=== PATIENT | female | born 1935 | race Caucasian/White ===

== ENCOUNTER 2017-06-10 12:53 | Inpatient (IN) | payer MEDICARE, MEDICAID ==
[2017-06-10 13:29] LABS: % BASOPHILS 0.9 % (0.0-2.0); % EOSINOPHILS 1.7 % (0.0-5.0); % LYMPHOCYTES 24.9 % (20.0-50.0); % MONOCYTES 5.8 % (2.0-10.0); % NEUTROPHILS 66.7 % (40.0-80.0); HEMOGLOBIN 12.6 gm/dL (12-16); MEAN CELL VOLUME 91.3 fl (81-100); MEAN CORPUSCULAR HGB CONC 33.9 pg (28.0-36.0); MEAN PLATELET VOLUME 7.2 fl; NEUTROPHILE ABSOLUTE 4.2 Th/cmm (1.8-8.0); PLATELET COUNT 238 Th/cmm (150-400); RED BLOOD COUNT 4.05 Mil/cmm (3.80-5.20); RED CELL DISTRIBUTION WIDTH 14.4 % (11.5-20.0); WHITE BLOOD COUNT 6.4 Th/cmm (4.8-10.8)
[2017-06-10 13:43] LABS: ALB/GLOB RATIO 1.2 (1.0-1.8); ALKALINE PHOSPHATASE 73 U/L (34-104); ANION GAP 7.9 (7.0-16.0); BILIRUBIN,TOTAL 0.5 mg/dL (0.3-1.0); BUN - UREA NITROGEN 19 mg/dL (7-25); CALCIUM SERUM 8.5 mg/dL (8.6-10.3); CARBON DIOXIDE 27.2 mEq/L (21.0-31.0); CHLORIDE 105 mEq/L (98-107); GLUCOSE 155 mg/dL (70-105); POTASSIUM SERUM 4.1 mEq/L (3.5-5.1); SGOT 13 U/L (13-39); SGPT/ALT 8 U/L (7-52); SODIUM SERUM 136 mEq/L (136-145)
[2017-06-10 13:59] LABS: URINE BILIRUBIN NEGATIVE (NEGATIVE); URINE BLOOD TRACE (NEGATIVE); URINE GLUCOSE (UA) NEGATIVE (NEGATIVE); URINE KETONE NEGATIVE (NEGATIVE); URINE PROTEIN NEGATIVE (NEGATIVE)
[2017-06-10 14:08] LABS: URINE BACTERIA MANY /hpf (NONE SEEN); URINE COLOR YELLOW; URINE EPITHELIAL CELLS FEW /lpf (FEW); URINE RBC 0-2 /hpf (0-5); URINE WBC 0-2 /hpf (0-5)
--- NOTE | 2017-06-10 14:14 | ED Physician Chart ---
ED Chief Complaint/HPI - Patient Information Date Seen:: 06/10/17 Time Seen:: 13:54 Chief Complaint:: Weight loss History of Present Illness:: 82 yo female presented to the ER with her daughter. The patient who has a history of stroke 10 years ago, was noticed to have short term memory loss for about 10 months. She was also noticed weight loss for 4 months. About 2 months ago, the patient was admitted to hospital due to UTI and falls. She was diagnosed with Alzheimer's disease and was later discharged to a SNF in [place]. The patient was subsequently brought to [place], [place] by her daughter. The patient has developed frequent UTI due to bladder prolapse. Recently, the patient was noticed to have a large right abdominal protrusion and odorous urine. At night time, the patient was also noticed to more confused. Allergies:: Allergies Allergy/AdvReac Type Severity Reaction Status Date / Time No Known Allergies Allergy Verified 06/10/17 13:06 Vitals:: Vital Signs - 8 hr 06/10/17 13:00 Temp 97.7 F HR 66 RR 15 BP 144/76 O2 Sat % 98 ED Review of Systems - Review of Systems General/Constitutional: Weight loss, Weakness Skin: Bruising Head: No headache Eyes: No loss of vision ENT: No nasal drainage Neck: No neck pain Cardio Vascular: No chest pain Pulmonary: No SOB GI: No nausea, No vomiting Musculoskeletal: No bone or joint pain Neurological: Confusion ED Past Medical History - Past Medical History Past Medical History: HTN, CVA/TIA, Other (cystocele) Social History: Smoker (former smoker), No Alcohol, No Drug Use Surgical History: other (cystocele surgery) Psychiatricy History: Dementia Family Medical History - Family Member Daughter Ethnicity: Hx Family Cancer: No Hx Family Congestive Heart Failure: No Hx Family Hypertension: No Hx Family Stroke: Yes (father) Hx Family Diabetes: No Hx Family Dementia: Yes (older sister) Hx Family AIDS: No Hx Family HIV: No Hx Family COPD: No Hx Family Psychiatric Problems: No Hx Family Tuberculosis: No ED Physical Exam - Physical Examination General/Constitutional: Awake, Alert Eyes: PERRL, EOMI Other Skin comments:: Left perioral ecchymosis ENMT: External ears, nose nl Neck: Nontender Respiratory: Clear to Auscultation, No Wheeze/Rhonchi/Rales Cardio Vascular: RRR, No murmur, gallop, rubs, NL S1 S2 Other GI comments:: A large right lower quadrant abdominal hernia Other comments:: bladder prolapse can be retracted. Other Misc comments:: Oriented to self only, cannot recognize her daughter, follow command, left facial weakness, RUE 5/5, LUE 4+/5, RLE 5/5, LLE 4+/5. ED Labs/Radiology/EKG Results - Lab Results Results: Laboratory Tests 06/10/17 13:20 WBC 6.4 RBC 4.05 Hgb 12.6 Hct 37.0 L MCV 91.3 MCH 31.0 MCHC Differential 33.9 RDW 14.4 Plt Count 238 MPV 7.2 Neutrophils % 66.7 Lymphocytes % 24.9 Monocytes % 5.8 Eosinophils % 1.7 Basophils % 0.9 ED Assessment - Assessment General Assessment: 82 yo female has Alzheimer's disease, large right abdominal hernia and cystocele with possible UTI. Critical Care Time: 45 min Excludes all billable procedures: Yes This condition life threatening/high prob of deterioration: No Assessment/Comments:: Admit the patient for further evaluation of worsening dementia, abdominal hernia , cystocele and possible UTI. ED Septic Shock - . Is Septic Shock (SBP<90, OR Lactate>4 mmol\L) present?: No - <6hrs of presentation: Vital Signs: Vital Signs - 8 hr 06/10/17 13:00 Temp 97.7 F HR 66 RR 15 BP 144/76 O2 Sat % 98 ED Reassessment (Disposition) - Reassessment Reassessment Condition:: Improved - Patient Disposition Discharge/Transfer:: Acute Care w/in this hosp Admitted to:: Med/Surg Admitting Psych Physician:: Elizabeth Jacob ED Discharge Plan - Patient Disposition Admit/Discharge/Transfer: Acute Care w/in this hosp Condition at Disposition: Stable
[2017-06-10] MEDS ORDERED: Pneumococcal Vaccine 0.5 mL Vial IM ONE (17:36)
[2017-06-10 19:37] VITALS: BP 134/71
--- NOTE | 2017-06-10 22:36 | History and Physical ---
History of Present Illness - HPI Chief Complaint: weight loss HPI: 82 year old female who was brought to the ER by daughter for complaints of weight loss. Patient was recently discharged from a halfway in [place], [place]. Patient has been having frequent falls and uti. Vital Signs: Last Vital Signs Temp 98.0 F 06/10/17 21:14 Pulse 72 06/10/17 21:14 Resp 18 06/10/17 21:14 BP 120/68 06/10/17 21:14 Pulse Ox 98 06/10/17 21:14 Past Medical History Cardiovascular: Report: HTN Pulmonary: Report: No Pertinent Hx LADLE REPAIRER: Report: CVA GI: Report: No Pertinent Hx Psych: Report: Addictions, Other (alzheimers) Rheumatologic: Report: No pertinent Hx Infectious Disease: Report: No Pertinent Hx Renal/: Report: Other (cystocele) Endocrine: Report: No Pertinent Hx Dermatology: Report: No Pertinent Hx - Past Surgical History Past Surgical History: Other (cystocele) Family Medical History - Family Member Daughter History Unknown: Yes (noncontributory) Ethnicity: Hx Family Cancer: No Hx Family Congestive Heart Failure: No Hx Family Hypertension: No Hx Family Stroke: Yes (father) Hx Family Diabetes: No Hx Family Dementia: Yes (older sister) Hx Family AIDS: No Hx Family HIV: No Hx Family COPD: No Hx Family Psychiatric Problems: No Hx Family Tuberculosis: No Social History Smoke: No Alcohol: None Drugs: None Lives: With Family - Medications Home Medications: Home Medication Medication Instructions Recorded Type Amlodipine Besylate 5 mg PO DAILY 06/10/17 History Aspirin 81 mg PO DAILY 06/10/17 History Clopidogrel Bisulfate [Plavix] 75 mg PO DAILY 06/10/17 History Ferrous Sulfate [Iron] 325 mg PO BID 06/10/17 History Haloperidol [Haldol*] 1 mg PO TID 06/10/17 History QUEtiapine Fumarate [SEROquel] 25 mg PO HS 06/10/17 History Ramipril [Ramipril*] 10 mg PO DAILY 06/10/17 History - Allergies Allergies/Adverse Reactions: Allergies Allergy/AdvReac Type Severity Reaction Status Date / Time No Known Allergies Allergy Verified 06/10/17 13:06 Review of Systems - Review of Systems Constitutional: Report: Weakness Eyes: Report: No Significant ENT: Report: No Significant Respiratory: Report: No Significant Cardiovascular: Report: No Significant Gastrointestinal: Report: No Significant Genitourinary: Report: No Significant Neurological: Report: Numbness, Confusion Physical Exam - Physical Exam HEENT: Report: Ears Nose Throat within normal limits Neck: Report: Within normal limits Cardiovascular Systems: Report: +s1/s2 noted, Regular, Rate and Rhythm Respiratory: Report: Breath Sounds are within normal limits Abdomen: Report: Non-tender to palpation Back: Report: Inspection of back is within normal limits. Extremities: Report: Non-tender to palpation. Skin: Report: Color of skin is within normal limits Neuro/Psych: Report: Weakness or sensory loss noted. - Assessment Assessment: acute uti dementia hx frequent falls alzheimer's hx cva - Plan Plan: neuro consult dietary consult monitor electrolytes fall precautions continue current order
--- NOTE | 2017-06-11 04:01 | Consultation ---
DATE OF CONSULTATION: 06/10/2017 HISTORY AND PHYSICAL: This is an 82-year-old female patient, who was brought in by the daughter to the Emergency Room. The patient has a history of stroke 10 years ago and the patient has recent weight loss. The patient has been admitted with repeat urinary tract infection and falls. The patient at the present time has dementia with recent memory loss. The patient has uterine prolapse. The patient is confused and poor historian at this time. PAST MEDICAL HISTORY: Urinary tract infection, dementia, protein calorie malnutrition, urinary bladder prolapse, hypertension, CVA with late effect, iron deficiency anemia, major depression. FAMILY HISTORY: Unremarkable. SOCIAL HISTORY: No history of smoking, alcohol abuse. ALLERGIES: None. PHYSICAL EXAMINATION: VITAL SIGNS: Blood pressure 130/80, pulse 70, respirations 20. HEAD: Normocephalic. No lumps or bumps. EYES: Pupils equal, reactive to light. Fundi show AV nicking, sclerae white, conjunctivae pink. NECK: Carotid 2+. Normal upstroke. JVD flat. Thyroid not palpable. Lymph nodes not palpable. CHEST: Shows increased AP diameter. No kyphosis, scoliosis. LUNGS: Bilateral bronchovesicular breath sounds. HEART: PMI fifth intercostal space with lateral to midclavicular line. S1, S2. No S3, S4. Systolic murmur, grade 2/6, lower left sternal border without radiation. ABDOMEN: Soft. Liver and spleen not palpable. No organomegaly. Bowel sounds are active. NEUROLOGIC: Unremarkable except dementia. EXTREMITIES: Peripheral pulses 2+. No pedal edema. CLINICAL IMPRESSION: Urinary tract infection, dementia, protein calorie malnutrition, bladder prolapse, hypertension, CVA with late effect, iron-deficiency anemia, major depression, and frequent falls. PLAN: The patient to be admitted. We will get carotid duplex study as well as echocardiogram and repeat EKG. [facility]# [id number]
[2017-06-11 05:26] LABS: % BASOPHILS 0.7 % (0.0-2.0); % EOSINOPHILS 3.4 % (0.0-5.0); % LYMPHOCYTES 32.9 % (20.0-50.0); % MONOCYTES 6.5 % (2.0-10.0); % NEUTROPHILS 56.5 % (40.0-80.0); HEMATOCRIT 37.8 % (41.0-60); HEMOGLOBIN 12.7 gm/dL (12-16); MEAN CORPUSCULAR HEMOGLOBIN 30.6 pg (27.0-31.0); MEAN CORPUSCULAR HGB CONC 33.6 pg (28.0-36.0); NEUTROPHILE ABSOLUTE 3.2 Th/cmm (1.8-8.0); PLATELET COUNT 219 Th/cmm (150-400); RED BLOOD COUNT 4.15 Mil/cmm (3.80-5.20); RED CELL DISTRIBUTION WIDTH 14.5 % (11.5-20.0); WHITE BLOOD COUNT 5.7 Th/cmm (4.8-10.8)
[2017-06-11 05:44] LABS: ANION GAP 8.9 (7.0-16.0); BUN - UREA NITROGEN 19 mg/dL (7-25); BUN/CREATININE RATIO 21.1; CALCIUM SERUM 8.9 mg/dL (8.6-10.3); CARBON DIOXIDE 27.5 mEq/L (21.0-31.0); CHLORIDE 107 mEq/L (98-107); CREATININE - SERUM 0.9 mg/dL (0.6-1.2); GLUCOSE 92 mg/dL (70-105); POTASSIUM SERUM 4.4 mEq/L (3.5-5.1); SODIUM SERUM 139 mEq/L (136-145)
[2017-06-11] MEDS: Ferrous Sulfate 325 MG TAB PO SCH ×2 (08:57→17:59)
[2017-06-11] MEDS: Aspirin 81mg Chewable Tab PO SCH (08:57)
--- NOTE | 2017-06-11 16:49 | Consultation ---
Consult Note - Consult Note Service Date: 06/11/17 Referring Physician: Elizabeth Jacob Consult Note: PHYSICIAN Consultation Note: Date of Admission: 06/10/17 Purpose of Consultation: Chief Complaint: Patient GARRET MALIK was admitted to location Medical/Surgical Unit I with UTI,DEMENTIA. History of Present Illness: 82 yo female with PMH od dementia, depression, HTN, ventral hernia presented to the ER weight loss for 4 months. About 2 months ago, the patient was admitted to hospital due to UTI and falls. She was diagnosed with Alzheimer's disease and was later discharged to a SNF in [place]. The patient was subsequently brought to [place], [place] by her daughter. The patient has developed frequent UTI due to bladder prolapse. Recently, the patient was noticed to have a large right abdominal protrusion and odorous urine. At night time, the patient was also noticed to more confused. Past Medical History: Diagnoses IRON DEFICIENCY ANEMIA, UNSPECIFIED (06/10/17) UNSPECIFIED PROTEIN-CALORIE MALNUTRITION (06/10/17) DEMENTIA IN OTH DISEASES CLASSD ELSWHR W/O BEHAVRL DISTURB (06/10/17) MAJOR DEPRESSIVE DISORDER, RECURRENT, UNSPECIFIED (06/10/17) ALZHEIMER'S DISEASE, UNSPECIFIED (06/10/17) ESSENTIAL (PRIMARY) HYPERTENSION (06/10/17) UNSPECIFIED SEQUELAE OF CEREBRAL INFARCTION (06/10/17) UNSPECIFIED ABDOMINAL HERNIA WITHOUT OBSTRUCTION OR GANGRENE (06/10/17) URINARY TRACT INFECTION, SITE NOT SPECIFIED (06/10/17) CYSTOCELE, UNSPECIFIED (06/10/17) HISTORY OF FALLING (06/10/17) Allergies Allergy/AdvReac Type Severity Reaction Status Date / Time No Known Allergies Allergy Verified 06/10/17 13:06 Vital Signs Temp 98.9 F 06/11/17 12:00 Pulse 76 06/11/17 12:00 Resp 19 06/11/17 12:00 BP 138/89 06/11/17 12:00 Pulse Ox 98 06/11/17 12:00 Intake & Output 06/10/17 06/11/17 06/11/17 18:59 06:59 18:59 Intake Total 300 Balance 300 Weight (lbs) 58.967 kg 58.967 kg Intake: Oral 300 Other: # Voids 2 # Bowel Movements 0 Laboratory Results - last 24 hr 06/11/17 06/11/17 06/11/17 04:35 04:35 04:35 WBC 5.7 RBC 4.15 Hgb 12.7 Hct 37.8 L MCV 91.0 MCH 30.6 MCHC Differential 33.6 RDW 14.5 Plt Count 219 MPV 8.0 Neutrophils % 56.5 Lymphocytes % 32.9 Monocytes % 6.5 Eosinophils % 3.4 Basophils % 0.7 Sodium 139 Potassium 4.4 Chloride 107 Carbon Dioxide 27.5 Anion Gap 8.9 BUN 19 Creatinine 0.9 Est GFR ( Amer) TNP Est GFR (Non-Af Amer) TNP BUN/Creatinine Ratio 21.1 Glucose 92 Calcium 8.9 TSH 2.73 Home Medication Medication Instructions Recorded Type Amlodipine Besylate 5 mg PO DAILY 06/10/17 History Aspirin 81 mg PO DAILY 06/10/17 History Clopidogrel Bisulfate [Plavix] 75 mg PO DAILY 06/10/17 History Ferrous Sulfate [Iron] 325 mg PO BID 06/10/17 History Haloperidol [Haldol*] 1 mg PO TID 06/10/17 History QUEtiapine Fumarate [SEROquel] 25 mg PO HS 06/10/17 History Ramipril [Ramipril*] 10 mg PO DAILY 06/10/17 History Current Medications Generic Name Dose Route Start Last Admin Trade Name Gianna PRN Reason Stop Dose Admin Amlodipine Besylate 5 mg 06/11/17 09:00 06/11/17 08:57 Norvasc PO 08/10/17 08:59 5 mg DAILY KASSY Administration Aspirin 81 mg 06/11/17 09:00 06/11/17 08:57 Aspirin Chewable PO 08/10/17 08:59 81 mg DAILY KASSY Administration Clopidogrel Bisulfate 75 mg 06/11/17 09:00 06/11/17 08:57 Plavix PO 08/10/17 08:59 75 mg DAILY KASSY Administration Ferrous Sulfate 325 mg 06/11/17 09:00 06/11/17 08:57 Iron PO 08/10/17 08:59 325 mg BID KASSY Administration Haloperidol 1 mg 06/10/17 21:00 06/11/17 14:17 Haldol PO 08/09/17 20:59 Not Given TID [facility] Protocol Sodium Chloride 1,000 mls @ 50 mls/hr 06/10/17 17:57 Nacl 0.9% IV 08/09/17 17:56 .Q20H KASSY Lorazepam 1 mg 06/11/17 10:54 06/11/17 10:59 Ativan IVP 08/10/17 10:53 1 mg Q6HR PRN Administration Agitation Protocol Quetiapine Fumarate 25 mg 06/10/17 21:00 06/10/17 21:57 Seroquel PO 08/09/17 20:59 25 mg HS KASSY Administration Protocol Ramipril 10 mg 06/11/17 09:00 06/11/17 10:00 Altace PO 08/10/17 08:59 Not Given DAILY KASSY Temazepam 15 mg 06/10/17 22:26 06/10/17 22:42 Restoril PO 08/09/17 22:25 15 mg HS PRN Administration Insomnia Protocol Review of Systems: A 12 point ROS was reviewed with the pertinent positive and negatives noted in the HPI. Social History Smoking Status Former smoker Drug Use No Alcohol Use No Family Medical History Family Medical History Start: 06/10/17 17: 14 Freq: ONCE Status: Active Document 06/10/17 17:14 [employer] (Rec: 06/10/17 17:19 [employer]OSES[employer] Star TechnologyJAELYN MARCUS-WOW- [id number]) Family Medical History Daughter History Unknown Yes Physical Exam: General: comfortable, cachectic. not in distress. HEENT: head: mprmocephalic,atraumatic/ Oral cavity moist, pink tongue, eyes pallor present. Neck: trachea in mid line. no use of accessory neck muscles. Cardio: S1 and S2 WNL. Respiratory: vesicular breath sounds. Abdominal: soft NT ND bs present. Genital/Urinary: deferred Extremities: ncce Neurological: alert awake. Assessment: 1. UTI. 2. Dementia. 3. HTN. Plan: Give cipro po for 7 days. further recommendations as per culture report. Signed, Timothy Healy M.D. [id number]
--- NOTE | 2017-06-11 18:50 | Progress Notes ---
DATE: 06/11/2017 SUBJECTIVE: The patient was seen interimly in the bed. The patient is awake, alert, oriented x 2-3 with episodes of confusion. Denies any pain or discomfort. Otherwise, the patient appears to be comfortable in no acute distress. OBJECTIVE: VITAL SIGNS: Temperature 98, heart rate of 66, blood pressure 132/70, respiration of 18, 95% on room air. HEENT: Head is atraumatic and normocephalic. Eyes: Bilateral conjunctivae are clear. Bilateral pupils are equally round and reactive. NECK: Supple. No JVD. CARDIOVASCULAR: S1 and S2, without murmur. PULMONARY: Clear to auscultation. GASTROINTESTINAL: Soft and nontender without guarding. Positive bowel sounds. MUSCULOSKELETAL: No clubbing, no cyanosis noted. ASSESSMENT: 1. Dementia. 2. Hypertension. 3. Iron deficiency anemia. 4. History of cerebrovascular accident. 5. History of frequent falls. 6. Insomnia. PLAN: We will keep the patient inpatient in Medical/Surgical Unit. We will monitor the patient's condition and behavior. Treatment plans were discussed with the patient's nurse. Treatment plans were discussed with Dr. Jacob. JOB# [id number]
[2017-06-12] MEDS: Sodium Chloride 0.9% 1,000 ML IV SCH ×2 (06:34→22:51)
--- NOTE | 2017-06-12 08:16 | Diagnostic Imaging Report ---
Exam: Ultrasound examination of the extracranial carotid circulation. HISTORY: Stenosis. Findings. Real-time ultrasound examination extracranial carotid circulation was performed multiple planes utilizing color Doppler technique. The study demonstrates atherosclerotic plaque consistent with calcified and soft plaque formation along the course of common carotid arteries extending in the origin internal and external carotid arteries bilaterally. Subintimal thickening is noted in carotid bulbs bilaterally. There is evidence of atherosclerotic plaque formation at the origin of the internal carotid arteries bilaterally with the mild stenosis. Right internal carotid artery ratio 0.9 Left internal carotid artery ratio 0.7. IMPRESSION: Mild stenosis of the internal carotid arteries at the origin with soft and calcified plaque formation and subintimal thickening.
--- NOTE | 2017-06-12 10:22 | General Progress Note ---
Subjective - Review of Systems Events since last encounter: patient awake alert some confusion in no pain Objective - Results Result Diagrams: 06/11/17 04:35 06/11/17 04:35 Recent Labs: Laboratory Last Values WBC 5.7 Th/cmm (4.8-10.8) 06/11/17 04:35 RBC 4.15 Mil/cmm (3.80-5.20) 06/11/17 04:35 Hgb 12.7 gm/dL (12-16) 06/11/17 04:35 Hct 37.8 % (41.0-60) L 06/11/17 04:35 MCV 91.0 fl (81-100) 06/11/17 04:35 MCH 30.6 pg (27.0-31.0) 06/11/17 04:35 MCHC Differential 33.6 pg (28.0-36.0) 06/11/17 04:35 RDW 14.5 % (11.5-20.0) 06/11/17 04:35 Plt Count 219 Th/cmm (150-400) 06/11/17 04:35 MPV 8.0 fl 06/11/17 04:35 Neutrophils % 56.5 % (40.0-80.0) 06/11/17 04:35 Lymphocytes % 32.9 % (20.0-50.0) 06/11/17 04:35 Monocytes % 6.5 % (2.0-10.0) 06/11/17 04:35 Eosinophils % 3.4 % (0.0-5.0) 06/11/17 04:35 Basophils % 0.7 % (0.0-2.0) 06/11/17 04:35 Sodium 139 mEq/L (136-145) 06/11/17 04:35 Potassium 4.4 mEq/L (3.5-5.1) 06/11/17 04:35 Chloride 107 mEq/L (98-107) 06/11/17 04:35 Carbon Dioxide 27.5 mEq/L (21.0-31.0) 06/11/17 04:35 Anion Gap 8.9 (7.0-16.0) 06/11/17 04:35 BUN 19 mg/dL (7-25) 06/11/17 04:35 Creatinine 0.9 mg/dL (0.6-1.2) 06/11/17 04:35 Est GFR ( Amer) TNP 06/11/17 04:35 Est GFR (Non-Af Amer) TNP 06/11/17 04:35 BUN/Creatinine Ratio 21.1 06/11/17 04:35 Glucose 92 mg/dL (70-105) 06/11/17 04:35 Hemoglobin A1c % 5.1 % (4.0-6.0) 06/10/17 13:45 Calcium 8.9 mg/dL (8.6-10.3) 06/11/17 04:35 Total Bilirubin 0.5 mg/dL (0.3-1.0) 06/10/17 13:20 AST 13 U/L (13-39) 06/10/17 13:20 ALT 8 U/L (7-52) 06/10/17 13:20 Alkaline Phosphatase 73 U/L (34-104) 06/10/17 13:20 Total Protein 6.9 gm/dL (6.0-8.3) 06/10/17 13:20 Albumin 3.7 gm/dL (3.7-5.3) 06/10/17 13:20 Globulin 3.2 gm/dL 06/10/17 13:20 Albumin/Globulin Ratio 1.2 (1.0-1.8) 06/10/17 13:20 TSH 2.73 uIU/ml (0.34-5.60) 06/11/17 04:35 Urine Source CLEAN C 06/10/17 13:45 Urine Color YELLOW 06/10/17 13:45 Urine Clarity HAZY (CLEAR) 06/10/17 13:45 Urine pH 6.0 (4.6 - 8.0) 06/10/17 13:45 Ur Specific [place] 1.020 (1.005-1.030) 06/10/17 13:45 Urine Protein NEGATIVE mg/dL (NEGATIVE) 06/10/17 13:45 Urine Glucose (UA) NEGATIVE mg/dL (NEGATIVE) 06/10/17 13:45 Urine Ketones NEGATIVE mg/dL (NEGATIVE) 06/10/17 13:45 Urine Blood TRACE (NEGATIVE) 06/10/17 13:45 Urine Nitrate NEGATIVE (NEGATIVE) 06/10/17 13:45 Urine Bilirubin NEGATIVE (NEGATIVE) 06/10/17 13:45 Urine Urobilinogen 1.0 E.U./dL (0.2 - 1.0) 06/10/17 13:45 Ur Leukocyte Esterase NEGATIVE (NEGATIVE) 06/10/17 13:45 Urine RBC 0-2 /hpf (0-5) 06/10/17 13:45 Urine WBC 0-2 /hpf (0-5) 06/10/17 13:45 Ur Epithelial Cells FEW /lpf (FEW) 06/10/17 13:45 Urine Bacteria MANY /hpf (NONE SEEN) 06/10/17 13:45 - Physical Exam Vitals and I&O: Vital Signs Temp 98.1 F 06/12/17 04:00 Pulse 56 06/12/17 04:00 Resp 18 06/12/17 04:00 BP 137/72 06/12/17 04:00 Pulse Ox 98 06/12/17 04:00 Intake & Output 06/11/17 06/12/17 06/12/17 18:59 06:59 18:59 Intake Total 800 0.833 Balance 800 0.833 Weight (lbs) 58.967 kg 59.012 kg Intake: Intake, IV Amount 0.833 Sodium Chloride 0.9% 1, 0.833 000 ml @ 50 mls/hr IV . Q20H [facility] Rx#:[id number] Oral 800 Other: # Voids 4 2 # Bowel Movements 0 0 Active Medications: Current Medications Amlodipine Besylate (Norvasc) 5 mg PO DAILY KASSY Stop: 08/10/17 08:59 Last Admin: 06/11/17 08:57 Dose: 5 mg Aspirin (Aspirin Chewable) 81 mg PO DAILY KASSY Stop: 08/10/17 08:59 Last Admin: 06/11/17 08:57 Dose: 81 mg Ciprofloxacin (Cipro) 250 mg PO BID KASSY Stop: 08/10/17 17:14 Last Admin: 06/11/17 18:00 Dose: 250 mg Clopidogrel Bisulfate (Plavix) 75 mg PO DAILY KASSY Stop: 08/10/17 08:59 Last Admin: 06/11/17 08:57 Dose: 75 mg Ferrous Sulfate (Iron) 325 mg PO BID KASSY Stop: 08/10/17 08:59 Last Admin: 06/11/17 17:59 Dose: 325 mg Haloperidol (Haldol) 1 mg PO TID KASSY PRN Reason: Protocol Stop: 08/09/17 20:59 Last Admin: 06/12/17 08:50 Dose: 1 mg Sodium Chloride (Nacl 0.9%) 1,000 mls @ 50 mls/hr IV .Q20H KASSY Stop: 08/09/17 17:56 Last Infusion: 06/12/17 06:35 Dose: 50 mls/hr Lorazepam (Ativan) 1 mg IVP Q6HR PRN; Protocol PRN Reason: Agitation Stop: 08/10/17 10:53 Last Admin: 06/12/17 09:45 Dose: 1 mg Quetiapine Fumarate (Seroquel) 25 mg PO HS KASSY PRN Reason: Protocol Stop: 08/09/17 20:59 Last Admin: 06/11/17 21:35 Dose: 25 mg Ramipril (Altace) 10 mg PO DAILY KASSY Stop: 08/10/17 08:59 Last Admin: 06/11/17 10:00 Dose: Not Given Temazepam (Restoril) 15 mg PO HS PRN; Protocol PRN Reason: Insomnia Stop: 08/09/17 22:25 Last Admin: 06/12/17 02:15 Dose: 15 mg General: No acute distress HEENT: Atraumatic, PERRLA Neck: Supple Cardiovascular: Regular rate, Normal S1 Lungs: Clear to auscultation Abdomen: Bowel sounds Assessment/Plan - Problem List Patient Problems: All Active Problems Dementia (Acute) F03.90 H/O: CVA (cerebrovascular accident) (Acute) Z86.73 HTN (hypertension) (Acute) I10 Insomnia (Acute) G47.00 Iron deficiency anemia (Acute) D50.9 h/o frequent falls (Acute) - Assessment Assessment: acute uti dementia hx frequent falls alzheimer's hx cva - Plan Plan: neuro consult dietary consult monitor electrolytes fall precautions continue current order
[2017-06-12] MEDS ORDERED: Probiotic Screen MC PRN (11:37)
[2017-06-12] MEDS: Ferrous Sulfate 325 MG TAB PO SCH ×2 (12:41→18:42)
[2017-06-12] MEDS: Aspirin 81mg Chewable Tab PO SCH (15:45)
[2017-06-13] MEDS ORDERED: Lactobacillus Rhamnosus 10 Billion CFU Capsule PO SCH (09:00)
[2017-06-13] MEDS: Aspirin 81mg Chewable Tab PO SCH (10:50)
[2017-06-13] MEDS: Ferrous Sulfate 325 MG TAB PO SCH (10:50)
--- NOTE | 2017-06-13 13:29 | Cardiology ---
06/11/2017 M-MODE ECHOCARDIOGRAM: Mitral valve, anterior leaflet of mitral valve shows decreased excursion, EF velocity. Posterior leaflet of mitral valve shows decreased excursion. Left ventricular posterior wall shows increased thickness, normal excursion. Interventricular septum shows increased thickness, normal excursion, hypertrophy of the left ventricle, ejection fraction 60%. Left atrium normal. Aortic root shows normal dimension, normal excursion of aortic leaflets. CONCLUSION: Hypertrophy of the left ventricle, ejection fraction 60%. 2D ECHO: Long axis view showed normal size left ventricle with hypertrophy of the left ventricle. Left atrium normal. Aortic root shows normal dimension, normal excursion of aortic leaflets. Short axis view of mitral valve normal. Short axis view of aortic valve normal. Apical four chamber view showed normal sized left ventricle with hypertrophy of the left ventricle. Left atrium normal. Right ventricular cavity, right atrium normal, no pericardial effusion. CONCLUSION: Hypertrophy of the left ventricle, ejection fraction 60%. Doppler study shows prominent A wave consistent with poor compliance of left ventricle, mild tricuspid regurgitation. Right ventricular systolic pressure 30 mmHg. [facility]# [id number]
[2017-06-14 08:11] LABS: CARCINOEMBRYONIC ANTIGEN 2.9 ng/mL (0.0-4.7)
== END 2017-06-13 15:33 | DRG 690 ==
LOC: ER 12:53 → MSI 15:35
PROVIDERS: ADMIT Internal Medicine; ATTEND Internal Medicine
DX: N39.0 Urinary tract infection, site not specified (principal); R64 Cachexia; E44.1 Mild protein-calorie malnutrition; G30.9 Alzheimer's disease, unspecified; F02.80 Dementia in other diseases classified elsewhere, unspecified severity, without behavioral disturbance, psychotic disturbance, mood disturbance, and anxiety; I10 Essential (primary) hypertension; D50.9 Iron deficiency anemia, unspecified; K46.9 Unspecified abdominal hernia without obstruction or gangrene; N81.10 Cystocele, unspecified; F32.9 Major depressive disorder, single episode, unspecified; G47.00 Insomnia, unspecified; Z68.21 Body mass index [BMI] 21.0-21.9, adult; Z91.81 History of falling; Z87.891 Personal history of nicotine dependence; Z79.82 Long term (current) use of aspirin; Z82.3 Family history of stroke; Z86.73 Personal history of transient ischemic attack (TIA), and cerebral infarction without residual deficits
CPT/HCPCS: 36415-UA; 80048-TC; 80053-TC; 81001-TC; 82378-90; 83036-90; 84443-TC; 85025-TC; 86301-90; 86304-90; 87086-90; 93005; 93880-TC; J2060; J7030; Z7502; Z7610

== ENCOUNTER 2017-06-13 15:36 | Inpatient (IN) | payer MEDICARE, MEDICAID ==
[2017-06-13] MEDS ORDERED: Magnesium Hydroxide (MOM) 30 mL UDC PO PRN (16:00)
[2017-06-13] MEDS ORDERED: Maalox 30 mL Cup PO PRN (16:00)
[2017-06-13 16:07] VITALS: BP 134/74
[2017-06-13] MEDS ORDERED: Ferrous Sulfate 325 MG TAB PO SCH (17:00)
--- NOTE | 2017-06-13 21:38 | Internal Medicine Prog Note ---
Internal Medicine Subjective - Subjective Service Date: 06/13/17 Patient seen and examined:: with staff Patient is:: awake, verbal, confused Per staff patient has:: no adverse event, tolerating meds Internal Medicine Objective - Physical Exam Vitals and I&O: Vital Signs Temp 97.8 F 06/13/17 20:49 Pulse 89 06/13/17 20:49 Resp 18 06/13/17 20:49 BP 115/62 06/13/17 20:49 Pulse Ox 95 06/13/17 20:49 Intake & Output 06/13/17 06/13/17 06/14/17 06:59 18:59 06:59 Intake Total 240 Balance 240 Weight (lbs) 56.79 kg Intake: Oral 240 Other: # Voids 1 Active Medications: Current Medications Acetaminophen (Tylenol) 650 mg PO Q4HR PRN PRN Reason: Mild Pain / Temp above 100 Stop: 08/12/17 15:59 Al Hydrox/Mg Hydrox/Simethicone (Maalox) 30 ml PO Q4HR PRN PRN Reason: GI DISTRESS Stop: 08/12/17 15:59 Amlodipine Besylate (Norvasc) 5 mg PO DAILY [facility] Stop: 08/13/17 08:59 Amlodipine Besylate (Norvasc) 5 mg PO DAILY [facility] Stop: 08/13/17 08:59 Aspirin (Aspirin Chewable) 81 mg PO DAILY [facility] Stop: 08/13/17 08:59 Aspirin (Aspirin Chewable) 81 mg PO DAILY [facility] Stop: 08/13/17 08:59 Ciprofloxacin (Cipro) 250 mg PO BID [facility] Stop: 08/12/17 16:59 Last Admin: 06/13/17 18:17 Dose: 250 mg Clopidogrel Bisulfate (Plavix) 75 mg PO DAILY [facility] Stop: 08/13/17 08:59 Clopidogrel Bisulfate (Plavix) 75 mg PO DAILY [facility] Stop: 08/13/17 08:59 Ferrous Sulfate (Iron) 325 mg PO BID [facility] Stop: 08/12/17 16:59 Last Admin: 06/13/17 18:18 Dose: 325 mg Ferrous Sulfate (Iron) 325 mg PO BID [facility] Stop: 08/13/17 08:59 Haloperidol (Haldol) 1 mg PO TID [facility] PRN Reason: Protocol Stop: 08/12/17 20:59 Haloperidol (Haldol) 1 mg PO TID [facility] PRN Reason: Protocol Stop: 08/13/17 08:59 Lactobacillus Rhamnosus (Culturelle) 1 each PO DAILY [facility] Stop: 08/13/17 08:59 Lactobacillus Rhamnosus (Culturelle) 1 each PO DAILY [facility] Stop: 08/13/17 08:59 Lorazepam (Ativan) 0.5 mg PO Q4HR PRN; Protocol PRN Reason: Anxiety Stop: 07/13/17 15:59 Magnesium Hydroxide (Milk Of Magnesia) 30 ml PO HS PRN PRN Reason: Constipation Miscellaneous (Ramipril [Ramipril*]) 10 mg PO DAILY [facility] Stop: 08/13/17 08:59 Multivitamins/Vitamin C (Theragran) 1 tab PO DAILY [facility] Stop: 08/13/17 08:59 Quetiapine Fumarate (Seroquel) 25 mg PO HS [facility] PRN Reason: Protocol Stop: 08/12/17 20:59 Quetiapine Fumarate (Seroquel) 25 mg PO HS [facility] PRN Reason: Protocol Stop: 08/13/17 20:59 Temazepam (Restoril) 15 mg PO HS PRN; Protocol PRN Reason: Insomnia Stop: 08/12/17 16:48 Temazepam (Restoril) 15 mg PO HS PRN; Protocol PRN Reason: Insomnia Stop: 08/12/17 21:33 General: alert HEENT: NC/AT, EOMI Neck: Supple Lungs: CTAB Cardiovascular: RRR, Normal S1, Normal S2 Abdomen: soft, non-tender, non-distended Neurological: alert Internal Medicine Assmt/Plan - Assessment Assessment: DEMENTIA H/O CVA HTN INSOMNIA IRON DEFICIENCY ANEMIA H/O FREQUENT FALLS - Plan Plan: fall precaution continue current orders
--- NOTE | 2017-06-13 21:38 | Internal Medicine Prog Note ---
Internal Medicine Subjective - Subjective Service Date: 06/13/17 Patient seen and examined:: with staff Patient is:: awake, verbal, confused Per staff patient has:: no adverse event, tolerating meds Internal Medicine Objective - Physical Exam Vitals and I&O: Vital Signs Temp 97.8 F 06/13/17 20:49 Pulse 89 06/13/17 20:49 Resp 18 06/13/17 20:49 BP 115/62 06/13/17 20:49 Pulse Ox 95 06/13/17 20:49 Intake & Output 06/13/17 06/13/17 06/14/17 06:59 18:59 06:59 Intake Total 240 Balance 240 Weight (lbs) 56.79 kg Intake: Oral 240 Other: # Voids 1 Active Medications: Current Medications Acetaminophen (Tylenol) 650 mg PO Q4HR PRN PRN Reason: Mild Pain / Temp above 100 Stop: 08/12/17 15:59 Al Hydrox/Mg Hydrox/Simethicone (Maalox) 30 ml PO Q4HR PRN PRN Reason: GI DISTRESS Stop: 08/12/17 15:59 Amlodipine Besylate (Norvasc) 5 mg PO DAILY [facility] Stop: 08/13/17 08:59 Amlodipine Besylate (Norvasc) 5 mg PO DAILY [facility] Stop: 08/13/17 08:59 Aspirin (Aspirin Chewable) 81 mg PO DAILY [facility] Stop: 08/13/17 08:59 Aspirin (Aspirin Chewable) 81 mg PO DAILY [facility] Stop: 08/13/17 08:59 Ciprofloxacin (Cipro) 250 mg PO BID [facility] Stop: 08/12/17 16:59 Last Admin: 06/13/17 18:17 Dose: 250 mg Clopidogrel Bisulfate (Plavix) 75 mg PO DAILY [facility] Stop: 08/13/17 08:59 Clopidogrel Bisulfate (Plavix) 75 mg PO DAILY [facility] Stop: 08/13/17 08:59 Ferrous Sulfate (Iron) 325 mg PO BID [facility] Stop: 08/12/17 16:59 Last Admin: 06/13/17 18:18 Dose: 325 mg Ferrous Sulfate (Iron) 325 mg PO BID [facility] Stop: 08/13/17 08:59 Haloperidol (Haldol) 1 mg PO TID [facility] PRN Reason: Protocol Stop: 08/12/17 20:59 Haloperidol (Haldol) 1 mg PO TID [facility] PRN Reason: Protocol Stop: 08/13/17 08:59 Lactobacillus Rhamnosus (Culturelle) 1 each PO DAILY [facility] Stop: 08/13/17 08:59 Lactobacillus Rhamnosus (Culturelle) 1 each PO DAILY [facility] Stop: 08/13/17 08:59 Lorazepam (Ativan) 0.5 mg PO Q4HR PRN; Protocol PRN Reason: Anxiety Stop: 07/13/17 15:59 Magnesium Hydroxide (Milk Of Magnesia) 30 ml PO HS PRN PRN Reason: Constipation Miscellaneous (Ramipril [Ramipril*]) 10 mg PO DAILY [facility] Stop: 08/13/17 08:59 Multivitamins/Vitamin C (Theragran) 1 tab PO DAILY [facility] Stop: 08/13/17 08:59 Quetiapine Fumarate (Seroquel) 25 mg PO HS [facility] PRN Reason: Protocol Stop: 08/12/17 20:59 Quetiapine Fumarate (Seroquel) 25 mg PO HS [facility] PRN Reason: Protocol Stop: 08/13/17 20:59 Temazepam (Restoril) 15 mg PO HS PRN; Protocol PRN Reason: Insomnia Stop: 08/12/17 16:48 Temazepam (Restoril) 15 mg PO HS PRN; Protocol PRN Reason: Insomnia Stop: 08/12/17 21:33 General: alert HEENT: NC/AT, EOMI Neck: Supple Lungs: CTAB Cardiovascular: RRR, Normal S1, Normal S2 Abdomen: soft, non-tender, non-distended Neurological: alert Internal Medicine Assmt/Plan - Assessment Assessment: DEMENTIA H/O CVA HTN INSOMNIA IRON DEFICIENCY ANEMIA H/O FREQUENT FALLS - Plan Plan: fall precaution continue current orders
--- NOTE | 2017-06-14 02:35 | Consultation ---
DATE OF CONSULTATION: 06/13/2017 IDENTIFYING INFORMATION: The patient is an 82-year-old female. REASON FOR CONSULTATION: This patient has been agitated, confused. I talked to her in the presence of her daughter who happens to be there. HISTORY OF PRESENT ILLNESS: The patient is with a history of dementia. Apparently, she has been a handful for her daughter. She moved her from [place] where she was in a nursing facility for 3 weeks and since then her daughter has been unable to work. The patient has been agitated, irritable, hard to redirect. The patient was unable to give any information. The only information she can give is her name. Her sleep or appetite varies. PAST PSYCHIATRIC HISTORY: Dementia. She has no prior psychiatric treatment before. She is now on Seroquel and Haldol because of her agitation. MEDICAL HISTORY: Deferred to Dr. Jacob. FAMILY AND SOCIAL HISTORY: The patient is twice, has 2 children, a boy and a girl. 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 She did not finish high school. She used to use alcohol when she was younger, but she is no longer using any alcohol or drugs. MENTAL STATUS EXAMINATION: The patient is appropriately dressed, not very well groomed. She was alert, unable to participate in a meaningful conversation, tell me her age or tell me who ____ [id number]. Her long and short term memory are poor. She is unpredictable and impulsive, easily irritable, agitated. Insight and judgment is impaired. IMPRESSION: AXIS I: Psychosis, not otherwise specified, dementia. MEDICAL DIAGNOSES: Deferred to the medical doctor. I would recommend to transfer to [facility] and we will adjust her medication. Thank you very much for allowing me to participate in the care of this most interesting lady. JOB# [id number]
--- NOTE | 2017-06-14 02:35 | Consultation ---
DATE OF CONSULTATION: 06/13/2017 IDENTIFYING INFORMATION: The patient is an 82-year-old female. REASON FOR CONSULTATION: This patient has been agitated, confused. I talked to her in the presence of her daughter who happens to be there. HISTORY OF PRESENT ILLNESS: The patient is with a history of dementia. Apparently, she has been a handful for her daughter. She moved her from [place] where she was in a nursing facility for 3 weeks and since then her daughter has been unable to work. The patient has been agitated, irritable, hard to redirect. The patient was unable to give any information. The only information she can give is her name. Her sleep or appetite varies. PAST PSYCHIATRIC HISTORY: Dementia. She has no prior psychiatric treatment before. She is now on Seroquel and Haldol because of her agitation. MEDICAL HISTORY: Deferred to Dr. Jacob. FAMILY AND SOCIAL HISTORY: The patient is twice, has 2 children, a boy and a girl. 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 She did not finish high school. She used to use alcohol when she was younger, but she is no longer using any alcohol or drugs. MENTAL STATUS EXAMINATION: The patient is appropriately dressed, not very well groomed. She was alert, unable to participate in a meaningful conversation, tell me her age or tell me who ____ [id number]. Her long and short term memory are poor. She is unpredictable and impulsive, easily irritable, agitated. Insight and judgment is impaired. IMPRESSION: AXIS I: Psychosis, not otherwise specified, dementia. MEDICAL DIAGNOSES: Deferred to the medical doctor. I would recommend to transfer to [facility] and we will adjust her medication. Thank you very much for allowing me to participate in the care of this most interesting lady. JOB# [id number]
--- NOTE | 2017-06-14 02:35 | Consultation ---
DATE OF CONSULTATION: 06/13/2017 IDENTIFYING INFORMATION: The patient is an 82-year-old female. REASON FOR CONSULTATION: This patient has been agitated, confused. I talked to her in the presence of her daughter who happens to be there. HISTORY OF PRESENT ILLNESS: The patient is with a history of dementia. Apparently, she has been a handful for her daughter. She moved her from [place] where she was in a nursing facility for 3 weeks and since then her daughter has been unable to work. The patient has been agitated, irritable, hard to redirect. The patient was unable to give any information. The only information she can give is her name. Her sleep or appetite varies. PAST PSYCHIATRIC HISTORY: Dementia. She has no prior psychiatric treatment before. She is now on Seroquel and Haldol because of her agitation. MEDICAL HISTORY: Deferred to Dr. Jacob. FAMILY AND SOCIAL HISTORY: The patient is twice, has 2 children, a boy and a girl. 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 She did not finish high school. She used to use alcohol when she was younger, but she is no longer using any alcohol or drugs. MENTAL STATUS EXAMINATION: The patient is appropriately dressed, not very well groomed. She was alert, unable to participate in a meaningful conversation, tell me her age or tell me who ____ [id number]. Her long and short term memory are poor. She is unpredictable and impulsive, easily irritable, agitated. Insight and judgment is impaired. IMPRESSION: AXIS I: Psychosis, not otherwise specified, dementia. MEDICAL DIAGNOSES: Deferred to the medical doctor. I would recommend to transfer to [facility] and we will adjust her medication. Thank you very much for allowing me to participate in the care of this most interesting lady. JOB# [id number]
--- NOTE | 2017-06-14 08:51 | General Progress Note ---
Subjective - Review of Systems Events since last encounter: no acute distress Objective - Physical Exam Vitals and I&O: Vital Signs Temp 98.0 F 06/14/17 06:37 Pulse 96 06/14/17 06:37 Resp 19 06/14/17 06:37 BP 143/93 06/14/17 06:37 Pulse Ox 95 06/14/17 06:37 Intake & Output 06/13/17 06/14/17 06/14/17 18:59 06:59 18:59 Intake Total 300 Balance 300 Intake: Oral 300 Other: # Voids 2 # Bowel Movements 0 Active Medications: Current Medications Acetaminophen (Tylenol) 650 mg PO Q4HR PRN PRN Reason: Mild Pain / Temp above 100 Stop: 08/12/17 15:59 Al Hydrox/Mg Hydrox/Simethicone (Maalox) 30 ml PO Q4HR PRN PRN Reason: GI DISTRESS Stop: 08/12/17 15:59 Amlodipine Besylate (Norvasc) 5 mg PO DAILY [facility] Stop: 08/13/17 08:59 Aspirin (Aspirin Chewable) 81 mg PO DAILY [facility] Stop: 08/13/17 08:59 Clopidogrel Bisulfate (Plavix) 75 mg PO DAILY [facility] Stop: 08/13/17 08:59 Ferrous Sulfate (Iron) 325 mg PO BID [facility] Stop: 08/13/17 08:59 Haloperidol (Haldol) 1 mg PO TID [facility] PRN Reason: Protocol Stop: 08/13/17 08:59 Lactobacillus Rhamnosus (Culturelle) 1 each PO DAILY [facility] Stop: 08/13/17 08:59 Lorazepam (Ativan) 0.5 mg PO Q4HR PRN; Protocol PRN Reason: Anxiety Stop: 07/13/17 15:59 Magnesium Hydroxide (Milk Of Magnesia) 30 ml PO HS PRN PRN Reason: Constipation Multivitamins/Vitamin C (Theragran) 1 tab PO DAILY [facility] Stop: 08/13/17 08:59 Quetiapine Fumarate (Seroquel) 25 mg PO HS [facility] PRN Reason: Protocol Stop: 08/13/17 20:59 Ramipril (Altace) 10 mg PO DAILY [facility] Stop: 08/13/17 08:59 Temazepam (Restoril) 15 mg PO HS PRN; Protocol PRN Reason: Insomnia Stop: 08/12/17 21:33 General: No acute distress HEENT: Atraumatic Neck: JVD Cardiovascular: Regular rate, Normal S1 Abdomen: Bowel sounds Assessment/Plan - Problem List Patient Problems: All Active Problems Dementia (Acute) F03.90 H/O: CVA (cerebrovascular accident) (Acute) Z86.73 HTN (hypertension) (Acute) I10 Insomnia (Acute) G47.00 Iron deficiency anemia (Acute) D50.9 h/o frequent falls (Acute) - Assessment Assessment: DEMENTIA H/O CVA HTN INSOMNIA IRON DEFICIENCY ANEMIA H/O FREQUENT FALLS - Plan Plan: fall precaution continue current orders
[2017-06-14] MEDS ORDERED: Lactobacillus Rhamnosus 10 Billion CFU Capsule PO SCH (09:00)
[2017-06-14] MEDS ORDERED: Aspirin 81mg Chewable Tab PO SCH (09:00)
[2017-06-14] MEDS: Lactobacillus Rhamnosus 10 Billion CFU Capsule PO SCH (09:54)
[2017-06-14] MEDS: Multivitamin Tab PO SCH (09:54)
[2017-06-14] MEDS: Ferrous Sulfate 325 MG TAB PO SCH ×2 (09:55→17:17)
[2017-06-14] MEDS: Aspirin 81mg Chewable Tab PO SCH (09:55)
--- NOTE | 2017-06-14 12:52 | Psychosocial Evaluation ---
DATE OF SERVICE: 06/13/2017 IDENTIFYING INFORMATION: The patient is an 82-year-old female. CHIEF COMPLAINT: No answer. HISTORY OF PRESENT ILLNESS: Transferred from medical floor, I saw her there yesterday for a consult. She was confused. I talked in presence of her daughter who said that the mother has been confused, can only recognize her name, but not her age when she asked. She believes she is 63 years of age. Unable to tell me why she is here and the date and any other personal information with a history of dementia. According to her daughter, no prior psychiatric treatment. No prior suicide attempts. The patient has a history of agitation and aggressive behavior. PAST PSYCHIATRIC HISTORY: History of dementia, unable to care for self. She was in a correction and they rather moved here with her daughter. Her daughter cannot go to work because of that to take care of her mother. FAMILY AND SOCIAL HISTORY: The patient is twice. She has 2 children, a boy and a girl. 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 She did not finish high school. She used to use alcohol when she was younger. No longer using alcohol or drugs. No family psychotic disorder. MENTAL STATUS EXAMINATION: The patient is appropriately dressed, not well groomed. She was alert, unable to participate in meaningful conversation, confused. Believed she is 63 years of age ____ where she is, why she is here, could not recognize her daughter or tell me if that is her daughter or not. Her long and short term memory is poor. Her insight and judgment is impaired, easily agitated. IMPRESSION: AXIS I: Psychosis, not otherwise specified, and dementia. MEDICAL DIAGNOSES: Deferred to the medical doctor. INITIAL TREATMENT PLAN: I would recommend the patient will be continued with her medication. She is currently on Haldol and Seroquel and the Haldol will be discontinued. We will do group therapy, milieu therapy, and individual therapy. ESTIMATED LENGTH OF STAY: 3-7 days. DISCHARGE CRITERIA: Decreasing psychosis, agitation. After discharge, outpatient treatment. JOB# [id number]
--- NOTE | 2017-06-14 12:52 | Psychosocial Evaluation ---
DATE OF SERVICE: 06/13/2017 IDENTIFYING INFORMATION: The patient is an 82-year-old female. CHIEF COMPLAINT: No answer. HISTORY OF PRESENT ILLNESS: Transferred from medical floor, I saw her there yesterday for a consult. She was confused. I talked in presence of her daughter who said that the mother has been confused, can only recognize her name, but not her age when she asked. She believes she is 63 years of age. Unable to tell me why she is here and the date and any other personal information with a history of dementia. According to her daughter, no prior psychiatric treatment. No prior suicide attempts. The patient has a history of agitation and aggressive behavior. PAST PSYCHIATRIC HISTORY: History of dementia, unable to care for self. She was in a fpc and they rather moved here with her daughter. Her daughter cannot go to work because of that to take care of her mother. FAMILY AND SOCIAL HISTORY: The patient is twice. She has 2 children, a boy and a girl. 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 She did not finish high school. She used to use alcohol when she was younger. No longer using alcohol or drugs. No family psychotic disorder. MENTAL STATUS EXAMINATION: The patient is appropriately dressed, not well groomed. She was alert, unable to participate in meaningful conversation, confused. Believed she is 63 years of age ____ where she is, why she is here, could not recognize her daughter or tell me if that is her daughter or not. Her long and short term memory is poor. Her insight and judgment is impaired, easily agitated. IMPRESSION: AXIS I: Psychosis, not otherwise specified, and dementia. MEDICAL DIAGNOSES: Deferred to the medical doctor. INITIAL TREATMENT PLAN: I would recommend the patient will be continued with her medication. She is currently on Haldol and Seroquel and the Haldol will be discontinued. We will do group therapy, milieu therapy, and individual therapy. ESTIMATED LENGTH OF STAY: 3-7 days. DISCHARGE CRITERIA: Decreasing psychosis, agitation. After discharge, outpatient treatment. JOB# [id number]
--- NOTE | 2017-06-15 08:43 | General Progress Note ---
Subjective - Review of Systems Events since last encounter: no acute distress Objective - Physical Exam Vitals and I&O: Vital Signs Temp 97.8 F 06/15/17 07:03 Pulse 58 06/15/17 07:03 Resp 20 06/15/17 07:03 BP 102/59 06/15/17 07:03 Pulse Ox 96 06/15/17 07:03 Intake & Output 06/14/17 06/15/17 06/15/17 18:59 06:59 18:59 Intake Total 240 Balance 240 Intake: Oral 240 Other: # Voids 1 3 # Bowel Movements 0 Active Medications: Current Medications Acetaminophen (Tylenol) 650 mg PO Q4HR PRN PRN Reason: Mild Pain / Temp above 100 Stop: 08/12/17 15:59 Al Hydrox/Mg Hydrox/Simethicone (Maalox) 30 ml PO Q4HR PRN PRN Reason: GI DISTRESS Stop: 08/12/17 15:59 Amlodipine Besylate (Norvasc) 5 mg PO DAILY [facility] Stop: 08/13/17 08:59 Last Admin: 06/14/17 09:55 Dose: 5 mg Aspirin (Aspirin Chewable) 81 mg PO DAILY [facility] Stop: 08/13/17 08:59 Last Admin: 06/14/17 09:55 Dose: 81 mg Clopidogrel Bisulfate (Plavix) 75 mg PO DAILY [facility] Stop: 08/13/17 08:59 Last Admin: 06/14/17 09:55 Dose: 75 mg Donepezil HCl (Aricept) 5 mg PO HS [facility] Stop: 08/14/17 20:59 Ferrous Sulfate (Iron) 325 mg PO BID [facility] Stop: 08/13/17 08:59 Last Admin: 06/14/17 17:17 Dose: 325 mg Lactobacillus Rhamnosus (Culturelle) 1 each PO DAILY [facility] Stop: 08/13/17 08:59 Last Admin: 06/14/17 09:54 Dose: 1 each Lorazepam (Ativan) 0.5 mg PO Q4HR PRN; Protocol PRN Reason: Anxiety Stop: 07/13/17 15:59 Last Admin: 06/14/17 17:18 Dose: 0.5 mg Magnesium Hydroxide (Milk Of Magnesia) 30 ml PO HS PRN PRN Reason: Constipation Multivitamins/Vitamin C (Theragran) 1 tab PO DAILY [facility] Stop: 08/13/17 08:59 Last Admin: 06/14/17 09:54 Dose: 1 tab Quetiapine Fumarate (Seroquel) 25 mg PO HS [facility] PRN Reason: Protocol Stop: 08/13/17 20:59 Last Admin: 06/14/17 20:40 Dose: 25 mg Ramipril (Altace) 10 mg PO DAILY [facility] Stop: 08/13/17 08:59 Last Admin: 06/14/17 09:54 Dose: 10 mg Temazepam (Restoril) 15 mg PO HS PRN; Protocol PRN Reason: Insomnia Stop: 08/12/17 21:33 Last Admin: 06/14/17 20:40 Dose: 15 mg General: No acute distress HEENT: Atraumatic Neck: JVD Cardiovascular: Regular rate, Normal S1 Abdomen: Bowel sounds Assessment/Plan - Problem List Patient Problems: All Active Problems Dementia (Acute) F03.90 H/O: CVA (cerebrovascular accident) (Acute) Z86.73 HTN (hypertension) (Acute) I10 Insomnia (Acute) G47.00 Iron deficiency anemia (Acute) D50.9 h/o frequent falls (Acute) - Assessment Assessment: DEMENTIA H/O CVA HTN INSOMNIA IRON DEFICIENCY ANEMIA H/O FREQUENT FALLS - Plan Plan: fall precaution continue current orders
[2017-06-15] MEDS: Lactobacillus Rhamnosus 10 Billion CFU Capsule PO SCH (10:46)
[2017-06-15] MEDS: Aspirin 81mg Chewable Tab PO SCH (10:49)
[2017-06-15] MEDS: Multivitamin Tab PO SCH (10:49)
[2017-06-15] MEDS: Ferrous Sulfate 325 MG TAB PO SCH ×2 (10:49→17:03)
--- NOTE | 2017-06-15 22:38 | Progress Notes ---
DATE: 06/15/2017 Case discussed with staff and the patient, reviewed records. The patient continues to be confused, demented, continues to be easily agitated, unable to make safe plan for self-care. She is sleeping well and eating with help of the staff, unpredictable, impulsive, needing redirection. I will be initiating Aricept on the patient to help with her dementia. I took her off Haldol, put on Seroquel as I do not think she needs to be on two antipsychotic at this point, try to manage with her just one if possible and discussed side effects of Zyprexa. We will continue with the patient in group therapy, milieu therapy, adjust the medication as needed. [facility]# [id number]
[2017-06-16] MEDS: Multivitamin Tab PO SCH (10:12)
[2017-06-16] MEDS: Lactobacillus Rhamnosus 10 Billion CFU Capsule PO SCH (10:12)
[2017-06-16] MEDS: Aspirin 81mg Chewable Tab PO SCH (10:13)
[2017-06-16] MEDS: Ferrous Sulfate 325 MG TAB PO SCH ×2 (10:15→17:59)
--- NOTE | 2017-06-16 15:34 | General Progress Note ---
Subjective - Review of Systems Events since last encounter: no distress patient awake Objective - Physical Exam Vitals and I&O: Vital Signs Temp 98 F 06/16/17 06:46 Pulse 79 06/16/17 06:46 Resp 19 06/16/17 06:46 BP 120/71 06/16/17 06:46 Pulse Ox 97 06/16/17 06:46 Intake & Output 06/15/17 06/16/17 06/16/17 18:59 06:59 18:59 Intake Total 1200 120 Balance 1200 120 Intake: Oral 1200 120 Other: # Voids 3 3 # Bowel Movements 1 Active Medications: Current Medications Acetaminophen (Tylenol) 650 mg PO Q4HR PRN PRN Reason: Mild Pain / Temp above 100 Stop: 08/12/17 15:59 Al Hydrox/Mg Hydrox/Simethicone (Maalox) 30 ml PO Q4HR PRN PRN Reason: GI DISTRESS Stop: 08/12/17 15:59 Amlodipine Besylate (Norvasc) 5 mg PO DAILY KASSY Stop: 08/13/17 08:59 Last Admin: 06/16/17 10:19 Dose: Not Given Aspirin (Aspirin Chewable) 81 mg PO DAILY KASSY Stop: 08/13/17 08:59 Last Admin: 06/16/17 10:13 Dose: 81 mg Clopidogrel Bisulfate (Plavix) 75 mg PO DAILY KASSY Stop: 08/13/17 08:59 Last Admin: 06/16/17 10:13 Dose: 75 mg Donepezil HCl (Aricept) 5 mg PO HS KASSY Stop: 08/14/17 20:59 Last Admin: 06/15/17 21:35 Dose: 5 mg Ferrous Sulfate (Iron) 325 mg PO BID KASSY Stop: 08/13/17 08:59 Last Admin: 06/16/17 10:15 Dose: 325 mg Lactobacillus Rhamnosus (Culturelle) 1 each PO DAILY KASSY Stop: 06/21/17 06:00 Last Admin: 06/16/17 10:12 Dose: 1 each Lorazepam (Ativan) 0.5 mg PO Q4HR PRN; Protocol PRN Reason: Anxiety Stop: 07/13/17 15:59 Last Admin: 06/14/17 17:18 Dose: 0.5 mg Magnesium Hydroxide (Milk Of Magnesia) 30 ml PO HS PRN PRN Reason: Constipation Multivitamins/Vitamin C (Theragran) 1 tab PO DAILY KASSY Stop: 08/13/17 08:59 Last Admin: 06/16/17 10:12 Dose: 1 tab Quetiapine Fumarate (Seroquel) 25 mg PO BID KASSY PRN Reason: Protocol Stop: 08/15/17 16:59 Ramipril (Altace) 10 mg PO DAILY KASSY Stop: 08/13/17 08:59 Last Admin: 06/16/17 10:18 Dose: Not Given Temazepam (Restoril) 15 mg PO HS PRN; Protocol PRN Reason: Insomnia Stop: 08/12/17 21:33 Last Admin: 06/14/17 20:40 Dose: 15 mg General: No acute distress HEENT: Atraumatic Neck: JVD Cardiovascular: Regular rate, Normal S1 Abdomen: Bowel sounds Assessment/Plan - Problem List Patient Problems: All Active Problems Dementia (Acute) F03.90 H/O: CVA (cerebrovascular accident) (Acute) Z86.73 HTN (hypertension) (Acute) I10 Insomnia (Acute) G47.00 Iron deficiency anemia (Acute) D50.9 h/o frequent falls (Acute) - Assessment Assessment: DEMENTIA H/O CVA HTN INSOMNIA IRON DEFICIENCY ANEMIA H/O FREQUENT FALLS - Plan Plan: fall precaution continue current orders
[2017-06-17] MEDS: Ferrous Sulfate 325 MG TAB PO SCH ×2 (08:49→16:35)
[2017-06-17] MEDS: Multivitamin Tab PO SCH (08:49)
[2017-06-17] MEDS: Lactobacillus Rhamnosus 10 Billion CFU Capsule PO SCH (08:50)
[2017-06-17] MEDS: Aspirin 81mg Chewable Tab PO SCH (08:51)
--- NOTE | 2017-06-17 22:04 | Internal Medicine Prog Note ---
Internal Medicine Subjective - Subjective Service Date: 06/17/17 Patient is:: awake, verbal, confused Per staff patient has:: no adverse event, tolerating meds Internal Medicine Objective - Physical Exam Vitals and I&O: Vital Signs Temp 97.4 F 06/17/17 14:00 Pulse 84 06/17/17 14:00 Resp 20 06/17/17 14:00 BP 126/62 06/17/17 14:00 Pulse Ox 97 06/17/17 14:00 Intake & Output 06/17/17 06/17/17 06/18/17 06:59 18:59 06:59 Intake Total 920 Balance 920 Intake: Oral 920 Other: # Voids 3 # Bowel Movements 2 Active Medications: Current Medications Acetaminophen (Tylenol) 650 mg PO Q4HR PRN PRN Reason: Mild Pain / Temp above 100 Stop: 08/12/17 15:59 Al Hydrox/Mg Hydrox/Simethicone (Maalox) 30 ml PO Q4HR PRN PRN Reason: GI DISTRESS Stop: 08/12/17 15:59 Amlodipine Besylate (Norvasc) 5 mg PO DAILY KASSY Stop: 08/13/17 08:59 Last Admin: 06/17/17 08:49 Dose: Not Given Aspirin (Aspirin Chewable) 81 mg PO DAILY KASSY Stop: 08/13/17 08:59 Last Admin: 06/17/17 08:51 Dose: Not Given Clopidogrel Bisulfate (Plavix) 75 mg PO DAILY KASSY Stop: 08/13/17 08:59 Last Admin: 06/17/17 08:50 Dose: Not Given Donepezil HCl (Aricept) 5 mg PO HS KASSY Stop: 08/14/17 20:59 Last Admin: 06/17/17 20:44 Dose: 5 mg Ferrous Sulfate (Iron) 325 mg PO BID KASSY Stop: 08/13/17 08:59 Last Admin: 06/17/17 16:35 Dose: Not Given Lactobacillus Rhamnosus (Culturelle) 1 each PO DAILY KASSY Stop: 06/21/17 06:00 Last Admin: 06/17/17 08:50 Dose: Not Given Lorazepam (Ativan) 0.5 mg PO Q4HR PRN; Protocol PRN Reason: Anxiety Stop: 07/13/17 15:59 Last Admin: 06/17/17 20:45 Dose: 0.5 mg Magnesium Hydroxide (Milk Of Magnesia) 30 ml PO HS PRN PRN Reason: Constipation Multivitamins/Vitamin C (Theragran) 1 tab PO DAILY KASSY Stop: 08/13/17 08:59 Last Admin: 06/17/17 08:49 Dose: Not Given Quetiapine Fumarate (Seroquel) 25 mg PO BID KASSY PRN Reason: Protocol Stop: 08/15/17 16:59 Last Admin: 06/17/17 16:35 Dose: Not Given Ramipril (Altace) 10 mg PO DAILY KASSY Stop: 08/13/17 08:59 Last Admin: 06/17/17 08:50 Dose: Not Given Temazepam (Restoril) 15 mg PO HS PRN; Protocol PRN Reason: Insomnia Stop: 08/12/17 21:33 Last Admin: 06/14/17 20:40 Dose: 15 mg General: alert HEENT: NC/AT, EOMI Neck: Supple Lungs: CTAB Cardiovascular: RRR, Normal S1, Normal S2 Abdomen: soft, non-tender, non-distended Neurological: alert Internal Medicine Assmt/Plan - Assessment Assessment: DEMENTIA H/O CVA HTN INSOMNIA IRON DEFICIENCY ANEMIA H/O FREQUENT FALLS - Plan Plan: fall precaution continue current orders
--- NOTE | 2017-06-17 23:03 | Progress Notes ---
DATE: 06/17/2017 Case was discussed with staff of the patient, reviewed records. The patient continues to be rambling. She was undressing herself when I tried to talk to her in the group room. She continues to be confused, demented, unable to make safe plan for self-care. She is sleeping well, eating well and had to be fed by the staff. She is compliant with the medication with no side effects, no sedation, no nausea, no extrapyramidal symptoms. Had been started on Aricept and she is on Seroquel, dose was increased yesterday to 25 mg twice a day and we will continue to work with the patient in group therapy, milieu therapy, adjust medication as needed. JOB# [id number]
[2017-06-18] MEDS: Aspirin 81mg Chewable Tab PO SCH (08:58)
[2017-06-18] MEDS: Lactobacillus Rhamnosus 10 Billion CFU Capsule PO SCH (08:58)
[2017-06-18] MEDS: Ferrous Sulfate 325 MG TAB PO SCH ×2 (08:58→16:32)
[2017-06-18] MEDS: Multivitamin Tab PO SCH (08:58)
--- NOTE | 2017-06-19 00:14 | Progress Notes ---
DATE: SUBJECTIVE: The patient seen, chart reviewed, discussed with staff. The patient is currently in the hospital confused, delusional, believes she is , believes she is going to have surgery today, believes that she is 63 when she is actually 82, demented, nonsensical, rambling, talking about cooking and being in the kitchen. I do have a pbx technician present, with a pbx technician notes that she makes no sense. She is in a Susan chair, remains restless. Medications were noted and reviewed. No overt side effects. ASSESSMENT: The patient remains symptomatic, poor sleep, delusional, believes that she is . PLAN: We will continue to monitor. The patient not sleeping well. We will add bedtime dosing of Seroquel. [facility]# [id number]
--- NOTE | 2017-06-19 00:14 | Progress Notes ---
DATE: SUBJECTIVE: The patient seen, chart reviewed, discussed with staff. The patient is currently in the hospital confused, delusional, believes she is , believes she is going to have surgery today, believes that she is 63 when she is actually 82, demented, nonsensical, rambling, talking about cooking and being in the kitchen. I do have a stripping and booking machine operator present, with a stripping and booking machine operator notes that she makes no sense. She is in a Susan chair, remains restless. Medications were noted and reviewed. No overt side effects. ASSESSMENT: The patient remains symptomatic, poor sleep, delusional, believes that she is . PLAN: We will continue to monitor. The patient not sleeping well. We will add bedtime dosing of Seroquel. [facility]# [id number]
--- NOTE | 2017-06-19 00:14 | Progress Notes ---
DATE: SUBJECTIVE: The patient seen, chart reviewed, discussed with staff. The patient is currently in the hospital confused, delusional, believes she is , believes she is going to have surgery today, believes that she is 63 when she is actually 82, demented, nonsensical, rambling, talking about cooking and being in the kitchen. I do have a identity management consultant present, with a identity management consultant notes that she makes no sense. She is in a Susan chair, remains restless. Medications were noted and reviewed. No overt side effects. ASSESSMENT: The patient remains symptomatic, poor sleep, delusional, believes that she is . PLAN: We will continue to monitor. The patient not sleeping well. We will add bedtime dosing of Seroquel. [facility]# [id number]
--- NOTE | 2017-06-19 06:46 | Progress Notes ---
DATE: 06/18/2017 SUBJECTIVE: The patient was seen in her room, waiting for her dinner. The patient appears to be confused and easily gets irritated. No behavioral issues noted according to the nurses; otherwise, the patient appears to be comfortable, in no acute distress. OBJECTIVES: VITAL SIGNS: Temperature 97.4, heart rate of 84, blood pressure is 126/62, respirations of 20, and saturations 97% on room air. HEENT: Head is atraumatic. Normocephalic. Eyes: Bilateral conjunctivae are clear. Bilateral pupils are equally round and reactive. NECK: Supple. No JVD. CARDIOVASCULAR: S1 and S2, without murmur. PULMONARY: Clear to auscultation. GASTROINTESTINAL: Soft and nontender without guarding. Positive bowel sounds. MUSCULOSKELETAL: No clubbing and no cyanosis noted. ASSESSMENT: 1. Dementia. 2. Hypertension. 3. Iron deficiency anemia. 4. History of fall. 5. History of cerebrovascular accident. PLAN: We will keep the patient inpatient in the Psychiatric Unit. We will follow up with the psychiatrist to monitor the patient's condition and behavior. Treatment plans were discussed with the patient's nurse. Treatment plans were discussed with Dr. Jacob. JOB# [id number]
--- NOTE | 2017-06-19 07:22 | General Progress Note ---
Subjective - Review of Systems Events since last encounter: patient continues to be depressed easily agitated Objective - Physical Exam Vitals and I&O: Vital Signs Temp 98.2 F 06/19/17 06:34 Pulse 82 06/19/17 06:34 Resp 18 06/19/17 06:34 BP 119/70 06/19/17 06:34 Pulse Ox 97 06/19/17 06:34 Intake & Output 06/18/17 06/19/17 06/19/17 18:59 06:59 18:59 Intake Total 850 240 Balance 850 240 Intake: Oral 850 240 Other: # Voids 4 1 # Bowel Movements 1 Active Medications: Current Medications Acetaminophen (Tylenol) 650 mg PO Q4HR PRN PRN Reason: Mild Pain / Temp above 100 Stop: 08/12/17 15:59 Al Hydrox/Mg Hydrox/Simethicone (Maalox) 30 ml PO Q4HR PRN PRN Reason: GI DISTRESS Stop: 08/12/17 15:59 Amlodipine Besylate (Norvasc) 5 mg PO DAILY KASSY Stop: 08/13/17 08:59 Last Admin: 06/18/17 08:55 Dose: 5 mg Aspirin (Aspirin Chewable) 81 mg PO DAILY KASSY Stop: 08/13/17 08:59 Last Admin: 06/18/17 08:58 Dose: 81 mg Clopidogrel Bisulfate (Plavix) 75 mg PO DAILY KASSY Stop: 08/13/17 08:59 Last Admin: 06/18/17 08:57 Dose: 75 mg Donepezil HCl (Aricept) 5 mg PO HS KASSY Stop: 08/14/17 20:59 Last Admin: 06/18/17 20:35 Dose: 5 mg Ferrous Sulfate (Iron) 325 mg PO BID KASSY Stop: 08/13/17 08:59 Last Admin: 06/18/17 16:32 Dose: 325 mg Lactobacillus Rhamnosus (Culturelle) 1 each PO DAILY KASSY Stop: 06/21/17 06:00 Last Admin: 06/18/17 08:58 Dose: 1 each Lorazepam (Ativan) 0.5 mg PO Q4HR PRN; Protocol PRN Reason: Anxiety Stop: 07/13/17 15:59 Last Admin: 06/17/17 20:45 Dose: 0.5 mg Magnesium Hydroxide (Milk Of Magnesia) 30 ml PO HS PRN PRN Reason: Constipation Multivitamins/Vitamin C (Theragran) 1 tab PO DAILY KASSY Stop: 08/13/17 08:59 Last Admin: 06/18/17 08:58 Dose: 1 tab Quetiapine Fumarate (Seroquel) 25 mg PO BID KASSY PRN Reason: Protocol Stop: 08/15/17 16:59 Last Admin: 06/18/17 16:31 Dose: 25 mg Quetiapine Fumarate (Seroquel) 50 mg PO HS KASSY PRN Reason: Protocol Stop: 08/17/17 20:59 Last Admin: 06/18/17 20:34 Dose: 50 mg Ramipril (Altace) 10 mg PO DAILY KASSY Stop: 08/13/17 08:59 Last Admin: 06/18/17 08:57 Dose: 10 mg Temazepam (Restoril) 15 mg PO HS PRN; Protocol PRN Reason: Insomnia Stop: 08/12/17 21:33 Last Admin: 06/14/17 20:40 Dose: 15 mg General: No acute distress HEENT: Atraumatic Neck: JVD Cardiovascular: Regular rate, Normal S1 Abdomen: Bowel sounds Assessment/Plan - Problem List Patient Problems: All Active Problems Dementia (Acute) F03.90 H/O: CVA (cerebrovascular accident) (Acute) Z86.73 HTN (hypertension) (Acute) I10 Insomnia (Acute) G47.00 Iron deficiency anemia (Acute) D50.9 h/o frequent falls (Acute) - Assessment Assessment: DEMENTIA H/O CVA HTN INSOMNIA IRON DEFICIENCY ANEMIA H/O FREQUENT FALLS - Plan Plan: fall precaution continue current orders
[2017-06-19] MEDS: Aspirin 81mg Chewable Tab PO SCH (08:42)
[2017-06-19] MEDS: Ferrous Sulfate 325 MG TAB PO SCH ×2 (08:42→17:02)
[2017-06-19] MEDS: Multivitamin Tab PO SCH (08:42)
[2017-06-19] MEDS: Lactobacillus Rhamnosus 10 Billion CFU Capsule PO SCH (08:42)
[2017-06-20] MEDS: Aspirin 81mg Chewable Tab PO SCH (08:54)
[2017-06-20] MEDS: Multivitamin Tab PO SCH (08:55)
[2017-06-20] MEDS: Lactobacillus Rhamnosus 10 Billion CFU Capsule PO SCH (08:55)
[2017-06-20] MEDS: Ferrous Sulfate 325 MG TAB PO SCH ×2 (08:55→17:49)
--- NOTE | 2017-06-20 12:09 | Progress Notes ---
DATE: 06/19/2017 SUBJECTIVE: The patient was seen, chart reviewed, discussed with staff. The patient continues to ramble nonsensically, confused, disoriented, still in a Susan chair, talks to herself, still with psychotic symptoms. Eating with prompting, not sleeping very well. IMPRESSION: The patient remains symptomatic, poor sleep, rambling, and yelling. PLAN: We will continue to monitor. Given her ongoing symptoms, she is not currently safe for discharge at this time. [facility]# [id number]
--- NOTE | 2017-06-20 12:09 | Progress Notes ---
DATE: 06/19/2017 SUBJECTIVE: The patient was seen, chart reviewed, discussed with staff. The patient continues to ramble nonsensically, confused, disoriented, still in a Susan chair, talks to herself, still with psychotic symptoms. Eating with prompting, not sleeping very well. IMPRESSION: The patient remains symptomatic, poor sleep, rambling, and yelling. PLAN: We will continue to monitor. Given her ongoing symptoms, she is not currently safe for discharge at this time. [facility]# [id number]
--- NOTE | 2017-06-20 12:09 | Progress Notes ---
DATE: 06/19/2017 SUBJECTIVE: The patient was seen, chart reviewed, discussed with staff. The patient continues to ramble nonsensically, confused, disoriented, still in a Susan chair, talks to herself, still with psychotic symptoms. Eating with prompting, not sleeping very well. IMPRESSION: The patient remains symptomatic, poor sleep, rambling, and yelling. PLAN: We will continue to monitor. Given her ongoing symptoms, she is not currently safe for discharge at this time. [facility]# [id number]
--- NOTE | 2017-06-20 19:58 | Internal Medicine Prog Note ---
Internal Medicine Subjective - Subjective Patient is:: awake, verbal, confused Per staff patient has:: no adverse event, tolerating meds Internal Medicine Objective - Physical Exam Vitals and I&O: Vital Signs Temp 98.0 F 06/20/17 06:08 Pulse 72 06/20/17 09:04 Resp 18 06/20/17 06:08 BP 119/55 06/20/17 09:04 Pulse Ox 98 06/20/17 06:08 Intake & Output 06/20/17 06/20/17 06/21/17 06:59 18:59 06:59 Intake Total 300 480 Balance 300 480 Intake: Oral 300 480 Other: # Voids 2 3 # Bowel Movements 2 2 Stool Characteristics Liquid Liquid Active Medications: Current Medications Acetaminophen (Tylenol) 650 mg PO Q4HR PRN PRN Reason: Mild Pain / Temp above 100 Stop: 08/12/17 15:59 Al Hydrox/Mg Hydrox/Simethicone (Maalox) 30 ml PO Q4HR PRN PRN Reason: GI DISTRESS Stop: 08/12/17 15:59 Amlodipine Besylate (Norvasc) 5 mg PO DAILY KASSY Stop: 08/13/17 08:59 Last Admin: 06/20/17 09:04 Dose: Not Given Aspirin (Aspirin Chewable) 81 mg PO DAILY KASSY Stop: 08/13/17 08:59 Last Admin: 06/20/17 08:54 Dose: 81 mg Clopidogrel Bisulfate (Plavix) 75 mg PO DAILY KASSY Stop: 08/13/17 08:59 Last Admin: 06/20/17 08:55 Dose: 75 mg Diphenoxylate HCl/Atropine (Lomotil) 1 tab PO TID PRN PRN Reason: Diarrhea Stop: 06/22/17 08:59 Donepezil HCl (Aricept) 5 mg PO HS KASSY Stop: 08/14/17 20:59 Last Admin: 06/19/17 22:11 Dose: Not Given Ferrous Sulfate (Iron) 325 mg PO BID KASSY Stop: 08/13/17 08:59 Last Admin: 06/20/17 17:49 Dose: 325 mg Lactobacillus Rhamnosus (Culturelle) 1 each PO DAILY KASSY Stop: 06/21/17 06:00 Last Admin: 06/20/17 08:55 Dose: 1 each Lorazepam (Ativan) 0.5 mg PO Q4HR PRN; Protocol PRN Reason: Anxiety Stop: 07/13/17 15:59 Last Admin: 06/20/17 15:17 Dose: 0.5 mg Magnesium Hydroxide (Milk Of Magnesia) 30 ml PO HS PRN PRN Reason: Constipation Multivitamins/Vitamin C (Theragran) 1 tab PO DAILY KASSY Stop: 08/13/17 08:59 Last Admin: 06/20/17 08:55 Dose: 1 tab Quetiapine Fumarate (Seroquel) 25 mg PO BID KASSY PRN Reason: Protocol Stop: 08/15/17 16:59 Last Admin: 06/20/17 17:48 Dose: 25 mg Quetiapine Fumarate (Seroquel) 50 mg PO HS KASSY PRN Reason: Protocol Stop: 08/17/17 20:59 Last Admin: 06/19/17 22:11 Dose: Not Given Ramipril (Altace) 10 mg PO DAILY KASSY Stop: 08/13/17 08:59 Last Admin: 06/20/17 09:03 Dose: Not Given Temazepam (Restoril) 15 mg PO HS PRN; Protocol PRN Reason: Insomnia Stop: 08/12/17 21:33 Last Admin: 06/20/17 02:13 Dose: 15 mg General: alert HEENT: NC/AT, EOMI Neck: Supple Lungs: CTAB Cardiovascular: RRR, Normal S1, Normal S2 Abdomen: soft, non-tender, non-distended Neurological: alert Internal Medicine Assmt/Plan - Assessment Assessment: DEMENTIA H/O CVA HTN INSOMNIA IRON DEFICIENCY ANEMIA H/O FREQUENT FALLS - Plan Plan: fall precaution continue current orders
--- NOTE | 2017-06-20 22:51 | Progress Notes ---
DATE: 06/20/2017 Case was discussed with staff of the patient, reviewed records. The patient continues to be unpredictable, impulsive, demented, confused, easily agitated, irritable. Continues to have poor insight. Continues to be unable to make safe plan for self-care. She tolerated the Seroquel with no side effects, no sedation, no nausea, no extrapyramidal symptoms. We will continue to work with the patient in group therapy, milieu therapy and adjust medication as needed. [facility]# [id number]
--- NOTE | 2017-06-20 22:51 | Progress Notes ---
DATE: 06/20/2017 Case was discussed with staff of the patient, reviewed records. The patient continues to be unpredictable, impulsive, demented, confused, easily agitated, irritable. Continues to have poor insight. Continues to be unable to make safe plan for self-care. She tolerated the Seroquel with no side effects, no sedation, no nausea, no extrapyramidal symptoms. We will continue to work with the patient in group therapy, milieu therapy and adjust medication as needed. [facility]# [id number]
--- NOTE | 2017-06-20 22:51 | Progress Notes ---
DATE: 06/20/2017 Case was discussed with staff of the patient, reviewed records. The patient continues to be unpredictable, impulsive, demented, confused, easily agitated, irritable. Continues to have poor insight. Continues to be unable to make safe plan for self-care. She tolerated the Seroquel with no side effects, no sedation, no nausea, no extrapyramidal symptoms. We will continue to work with the patient in group therapy, milieu therapy and adjust medication as needed. [facility]# [id number]
[2017-06-21] MEDS: Aspirin 81mg Chewable Tab PO SCH (08:51)
[2017-06-21] MEDS: Multivitamin Tab PO SCH (08:52)
[2017-06-21] MEDS: Ferrous Sulfate 325 MG TAB PO SCH ×2 (08:52→16:48)
[2017-06-21] MEDS ORDERED: Diphenoxylate/Atropine 2.5mg Tab PO PRN ×2 (09:00)
--- NOTE | 2017-06-21 09:54 | General Progress Note ---
Subjective - Review of Systems Events since last encounter: patient awake alert no distress Objective - Physical Exam Vitals and I&O: Vital Signs Temp 98.0 F 06/21/17 05:43 Pulse 78 06/21/17 08:53 Resp 19 06/21/17 05:43 BP 126/74 06/21/17 08:53 Pulse Ox 96 06/21/17 05:43 Intake & Output 06/20/17 06/21/17 06/21/17 18:59 06:59 18:59 Intake Total 480 300 Balance 480 300 Intake: Oral 480 300 Other: # Voids 3 2 # Bowel Movements 2 0 Stool Characteristics Liquid Active Medications: Current Medications Acetaminophen (Tylenol) 650 mg PO Q4HR PRN PRN Reason: Mild Pain / Temp above 100 Stop: 08/12/17 15:59 Al Hydrox/Mg Hydrox/Simethicone (Maalox) 30 ml PO Q4HR PRN PRN Reason: GI DISTRESS Stop: 08/12/17 15:59 Amlodipine Besylate (Norvasc) 5 mg PO DAILY KASSY Stop: 08/13/17 08:59 Last Admin: 06/21/17 08:52 Dose: 5 mg Aspirin (Aspirin Chewable) 81 mg PO DAILY KASSY Stop: 08/13/17 08:59 Last Admin: 06/21/17 08:51 Dose: 81 mg Clopidogrel Bisulfate (Plavix) 75 mg PO DAILY KASSY Stop: 08/13/17 08:59 Last Admin: 06/21/17 08:52 Dose: 75 mg Diphenoxylate HCl/Atropine (Lomotil) 1 tab PO TID PRN PRN Reason: Diarrhea Stop: 06/22/17 08:59 Donepezil HCl (Aricept) 5 mg PO HS KASSY Stop: 08/14/17 20:59 Last Admin: 06/20/17 20:37 Dose: 5 mg Ferrous Sulfate (Iron) 325 mg PO BID KASSY Stop: 08/13/17 08:59 Last Admin: 06/21/17 08:52 Dose: 325 mg Lorazepam (Ativan) 0.5 mg PO Q4HR PRN; Protocol PRN Reason: Anxiety Stop: 07/13/17 15:59 Last Admin: 06/20/17 22:55 Dose: 0.5 mg Magnesium Hydroxide (Milk Of Magnesia) 30 ml PO HS PRN PRN Reason: Constipation Multivitamins/Vitamin C (Theragran) 1 tab PO DAILY KASSY Stop: 08/13/17 08:59 Last Admin: 06/21/17 08:52 Dose: 1 tab Quetiapine Fumarate (Seroquel) 25 mg PO BID KASSY PRN Reason: Protocol Stop: 08/15/17 16:59 Last Admin: 06/21/17 08:52 Dose: 25 mg Quetiapine Fumarate (Seroquel) 50 mg PO HS KASSY PRN Reason: Protocol Stop: 08/17/17 20:59 Last Admin: 06/20/17 20:37 Dose: 50 mg Ramipril (Altace) 10 mg PO DAILY KASSY Stop: 08/13/17 08:59 Last Admin: 06/21/17 08:53 Dose: 10 mg Temazepam (Restoril) 15 mg PO HS PRN; Protocol PRN Reason: Insomnia Stop: 08/12/17 21:33 Last Admin: 06/20/17 22:55 Dose: 15 mg General: No acute distress HEENT: Atraumatic Neck: JVD Cardiovascular: Regular rate, Normal S1 Abdomen: Bowel sounds Assessment/Plan - Problem List Patient Problems: All Active Problems Dementia (Acute) F03.90 H/O: CVA (cerebrovascular accident) (Acute) Z86.73 HTN (hypertension) (Acute) I10 Insomnia (Acute) G47.00 Iron deficiency anemia (Acute) D50.9 h/o frequent falls (Acute) - Assessment Assessment: DEMENTIA H/O CVA HTN INSOMNIA IRON DEFICIENCY ANEMIA H/O FREQUENT FALLS - Plan Plan: fall precaution continue current orders
--- NOTE | 2017-06-22 02:05 | Progress Notes ---
DATE: 06/21/2017 Case was discussed with staff of the patient, reviewed records. The patient continues to be confused, continues to get easily agitated, continues to be unpredictable and impulsive, needing redirection. We are working on placement for this patient. She is compliant with the medication with no side effects, no sedation, no nausea, no extrapyramidal symptoms. She tolerated the increase in Seroquel. We will continue to work with the patient in group therapy, milieu therapy, and adjust medications as needed. JOB# [id number]
--- NOTE | 2017-06-22 09:22 | General Progress Note ---
Subjective - Review of Systems Events since last encounter: patient continues to be irritable confused Objective - Physical Exam Vitals and I&O: Vital Signs Temp 97.6 F 06/22/17 06:00 Pulse 81 06/22/17 06:00 Resp 19 06/22/17 06:00 BP 122/74 06/22/17 06:00 Pulse Ox 97 06/22/17 06:00 Intake & Output 06/21/17 06/22/17 06/22/17 18:59 06:59 18:59 Intake Total 1600 Balance 1600 Intake: Oral 1600 Other: # Voids 4 # Bowel Movements 0 Active Medications: Current Medications Acetaminophen (Tylenol) 650 mg PO Q4HR PRN PRN Reason: Mild Pain / Temp above 100 Stop: 08/12/17 15:59 Al Hydrox/Mg Hydrox/Simethicone (Maalox) 30 ml PO Q4HR PRN PRN Reason: GI DISTRESS Stop: 08/12/17 15:59 Amlodipine Besylate (Norvasc) 5 mg PO DAILY KASSY Stop: 08/13/17 08:59 Last Admin: 06/21/17 08:52 Dose: 5 mg Aspirin (Aspirin Chewable) 81 mg PO DAILY KASSY Stop: 08/13/17 08:59 Last Admin: 06/21/17 08:51 Dose: 81 mg Clopidogrel Bisulfate (Plavix) 75 mg PO DAILY KASSY Stop: 08/13/17 08:59 Last Admin: 06/21/17 08:52 Dose: 75 mg Donepezil HCl (Aricept) 5 mg PO HS KASSY Stop: 08/14/17 20:59 Last Admin: 06/21/17 20:45 Dose: 5 mg Ferrous Sulfate (Iron) 325 mg PO BID KASSY Stop: 08/13/17 08:59 Last Admin: 06/21/17 16:48 Dose: 325 mg Lorazepam (Ativan) 0.5 mg PO Q4HR PRN; Protocol PRN Reason: Anxiety Stop: 07/13/17 15:59 Last Admin: 06/21/17 22:57 Dose: 0.5 mg Magnesium Hydroxide (Milk Of Magnesia) 30 ml PO HS PRN PRN Reason: Constipation Multivitamins/Vitamin C (Theragran) 1 tab PO DAILY KASSY Stop: 08/13/17 08:59 Last Admin: 06/21/17 08:52 Dose: 1 tab Quetiapine Fumarate (Seroquel) 25 mg PO BID KASSY PRN Reason: Protocol Stop: 08/15/17 16:59 Last Admin: 06/21/17 16:48 Dose: 25 mg Quetiapine Fumarate (Seroquel) 50 mg PO HS KASSY PRN Reason: Protocol Stop: 08/17/17 20:59 Last Admin: 06/21/17 20:45 Dose: 50 mg Ramipril (Altace) 10 mg PO DAILY KASSY Stop: 08/13/17 08:59 Last Admin: 06/21/17 08:53 Dose: 10 mg Temazepam (Restoril) 15 mg PO HS PRN; Protocol PRN Reason: Insomnia Stop: 08/12/17 21:33 Last Admin: 06/21/17 22:37 Dose: 15 mg General: No acute distress HEENT: Atraumatic Neck: JVD Cardiovascular: Regular rate, Normal S1 Abdomen: Bowel sounds Assessment/Plan - Problem List Patient Problems: All Active Problems Dementia (Acute) F03.90 H/O: CVA (cerebrovascular accident) (Acute) Z86.73 HTN (hypertension) (Acute) I10 Insomnia (Acute) G47.00 Iron deficiency anemia (Acute) D50.9 h/o frequent falls (Acute) - Assessment Assessment: DEMENTIA H/O CVA HTN INSOMNIA IRON DEFICIENCY ANEMIA H/O FREQUENT FALLS - Plan Plan: fall precaution continue current orders Nutritional Asmnt/Malnutr-PDOC - Dietary Evaluation Malnutrition Findings (Please click <Entered> for more info): Nutritional Asmnt/Malnutrition Start: 06/21/17 13: 09 Text: Status: Complete Freq: Document 06/21/17 13:09 [email or web address] (Rec: 06/21/17 13:33 [email or web address]) Nutritional Asmnt/Malnutrition Patient General Information Nutritional Screening LR Screen Diagnosis pschosis NOS Pertinent Medical Hx/Surgical Hx dementia, CVA, HTN, anemia Subjective Information Pt A&O x 1. Pt was eating 75- 100% until 2 days ago, when started refusing meals or eating 25-75%. Current Diet Order/ Nutrition Support pureed Patient / S.O Not Indicated Pertinent Medications lomotil, iron, MOM, MVI Pertinent Labs no labs available Nutritional Hx/Data Height 1.63 m Height (Calculated Centimeters) 162.6 Current Weight (lbs) 56.699 kg Weight (Calculated Kilograms) 56.7 Weight (Calculated Grams) 78022.0 [place] Body Weight 120 lbs % [place] Body Weight 104 Weight Status Approriate GI Symptoms GI Symptoms Diarrhea Difficult in: Chewing Skin Integrity/Comment: intact, no edema, vishnu: 17 Current %PO Fair (50-74%) Estimated Nutritional Goals BEE in Kcals: Using Current wt Calories/Kcals/Kg 25-30- maintenance Kcals Calculated 4356-0968 kcals Protein: Using Current wt Protein g/k Protein Calculated 57 Fluid: ml 5267-8675 mL (1 mL/kcal) Nutritional Problem 1. Problem Problem inadequate oral intake Etiology ? confusion, dementia Signs/Symptoms: decrease in PO intake over the last 2 days to 0-75% intake Malnutrition Alert Protein-Calorie Malnutrition N/A Is there a minimum of two criteria No selected? Query Text:Check all the applicable criteria. A minimum of two criteria are recommended for diagnosis of either severe or non-severe malnutrition. Malnutrition Related to Morbid Obesity Malnutrition related to morbid obesity No Intervention/Recommendation Recommendations by RD Protein supplementation Comments 1. Recommend Boost TID all meals due to decreased intake 2. Probiotics for diarrhea Expected Outcomes/Goals Expected Outcomes/Goals Goals: PO intake >50%, skin to remain intact, labs: WNL, wt to remain stable
--- NOTE | 2017-06-22 09:32 | Progress Notes ---
DATE: 06/22/2017 Case was discussed with staff of the patient, reviewed records. The patient continues to have poor insight, unpredictable and impulsive demented, confused, undressing herself, needing redirection, unpredictable, unable to make safe plan for self-care. She has been compliant with the medication with no side effects, so I did increase her Seroquel dose. She is on 25 mg twice a day and 50 at bedtime with no side effects, no sedation, no nausea, no extrapyramidal symptoms. We will continue to work with the patient in group therapy, milieu therapy, adjust medication as needed. JOB# [id number]
[2017-06-22] MEDS: Ferrous Sulfate 325 MG TAB PO SCH ×2 (10:28→16:50)
[2017-06-22] MEDS: Multivitamin Tab PO SCH (10:28)
[2017-06-22] MEDS: Aspirin 81mg Chewable Tab PO SCH (10:28)
[2017-06-22] MEDS ORDERED: Haloperidol Lactate 5 mg/mL 1mL Vial ONE (14:58)
[2017-06-22] MEDS ORDERED: Haloperidol Lactate 5 mg/mL 1mL Vial IM STA (15:07)
[2017-06-23] MEDS: Multivitamin Tab PO SCH (09:06)
[2017-06-23] MEDS: Aspirin 81mg Chewable Tab PO SCH (09:06)
[2017-06-23] MEDS: Ferrous Sulfate 325 MG TAB PO SCH (09:06)
--- NOTE | 2017-06-23 09:07 | General Progress Note ---
Subjective - Review of Systems Events since last encounter: patient awake still confused in no acute distress Objective - Physical Exam Vitals and I&O: Vital Signs Temp 97.9 F 06/23/17 06:25 Pulse 98 06/23/17 06:25 Resp 19 06/23/17 06:25 BP 123/74 06/23/17 06:25 Pulse Ox 96 06/23/17 06:25 Intake & Output 06/22/17 06/23/17 06/23/17 18:59 06:59 18:59 Intake Total 1100 120 Balance 1100 120 Intake: Oral 1100 120 Other: # Voids 3 # Bowel Movements 1 Active Medications: Current Medications Acetaminophen (Tylenol) 650 mg PO Q4HR PRN PRN Reason: Mild Pain / Temp above 100 Stop: 08/12/17 15:59 Al Hydrox/Mg Hydrox/Simethicone (Maalox) 30 ml PO Q4HR PRN PRN Reason: GI DISTRESS Stop: 08/12/17 15:59 Amlodipine Besylate (Norvasc) 5 mg PO DAILY KASSY Stop: 08/13/17 08:59 Last Admin: 06/22/17 10:26 Dose: 5 mg Aspirin (Aspirin Chewable) 81 mg PO DAILY KASSY Stop: 08/13/17 08:59 Last Admin: 06/22/17 10:28 Dose: 81 mg Clopidogrel Bisulfate (Plavix) 75 mg PO DAILY KASSY Stop: 08/13/17 08:59 Last Admin: 06/22/17 10:28 Dose: 75 mg Donepezil HCl (Aricept) 5 mg PO HS KASSY Stop: 08/14/17 20:59 Last Admin: 06/22/17 21:32 Dose: 5 mg Ferrous Sulfate (Iron) 325 mg PO BID KASSY Stop: 08/13/17 08:59 Last Admin: 06/22/17 16:50 Dose: 325 mg Lorazepam (Ativan) 0.5 mg PO Q4HR PRN; Protocol PRN Reason: Anxiety Stop: 07/13/17 15:59 Last Admin: 06/22/17 13:28 Dose: 0.5 mg Magnesium Hydroxide (Milk Of Magnesia) 30 ml PO HS PRN PRN Reason: Constipation Multivitamins/Vitamin C (Theragran) 1 tab PO DAILY KASSY Stop: 08/13/17 08:59 Last Admin: 06/22/17 10:28 Dose: 1 tab Quetiapine Fumarate (Seroquel) 25 mg PO BID KASSY PRN Reason: Protocol Stop: 08/15/17 16:59 Last Admin: 06/22/17 16:50 Dose: 25 mg Quetiapine Fumarate (Seroquel) 50 mg PO HS KASSY PRN Reason: Protocol Stop: 08/17/17 20:59 Last Admin: 06/22/17 21:32 Dose: 50 mg Ramipril (Altace) 10 mg PO DAILY KASSY Stop: 08/13/17 08:59 Last Admin: 06/22/17 15:12 Dose: 10 mg Temazepam (Restoril) 15 mg PO HS PRN; Protocol PRN Reason: Insomnia Stop: 08/12/17 21:33 Last Admin: 06/21/17 22:37 Dose: 15 mg General: No acute distress HEENT: Atraumatic Neck: JVD Cardiovascular: Regular rate, Normal S1 Abdomen: Bowel sounds Assessment/Plan - Problem List Patient Problems: All Active Problems Dementia (Acute) F03.90 H/O: CVA (cerebrovascular accident) (Acute) Z86.73 HTN (hypertension) (Acute) I10 Insomnia (Acute) G47.00 Iron deficiency anemia (Acute) D50.9 h/o frequent falls (Acute) - Assessment Assessment: DEMENTIA H/O CVA HTN INSOMNIA IRON DEFICIENCY ANEMIA H/O FREQUENT FALLS - Plan Plan: fall precaution continue current orders Nutritional Asmnt/Malnutr-PDOC - Dietary Evaluation Malnutrition Findings (Please click <Entered> for more info): Nutritional Asmnt/Malnutrition Start: 06/21/17 13: 09 Text: Status: Complete Freq: Document 06/21/17 13:09 [email or web address] (Rec: 06/21/17 13:33 [email or web address]) Nutritional Asmnt/Malnutrition Patient General Information Nutritional Screening LR Screen Diagnosis pschosis NOS Pertinent Medical Hx/Surgical Hx dementia, CVA, HTN, anemia Subjective Information Pt A&O x 1. Pt was eating 75- 100% until 2 days ago, when started refusing meals or eating 25-75%. Current Diet Order/ Nutrition Support pureed Patient / S.O Not Indicated Pertinent Medications lomotil, iron, MOM, MVI Pertinent Labs no labs available Nutritional Hx/Data Height 1.63 m Height (Calculated Centimeters) 162.6 Current Weight (lbs) 56.699 kg Weight (Calculated Kilograms) 56.7 Weight (Calculated Grams) 62987.0 [place] Body Weight 120 lbs % [place] Body Weight 104 Weight Status Approriate GI Symptoms GI Symptoms Diarrhea Difficult in: Chewing Skin Integrity/Comment: intact, no edema, vishnu: 17 Current %PO Fair (50-74%) Estimated Nutritional Goals BEE in Kcals: Using Current wt Calories/Kcals/Kg 25-30- maintenance Kcals Calculated 4319-6831 kcals Protein: Using Current wt Protein g/k Protein Calculated 57 Fluid: ml 4813-9635 mL (1 mL/kcal) Nutritional Problem 1. Problem Problem inadequate oral intake Etiology ? confusion, dementia Signs/Symptoms: decrease in PO intake over the last 2 days to 0-75% intake Malnutrition Alert Protein-Calorie Malnutrition N/A Is there a minimum of two criteria No selected? Query Text:Check all the applicable criteria. A minimum of two criteria are recommended for diagnosis of either severe or non-severe malnutrition. Malnutrition Related to Morbid Obesity Malnutrition related to morbid obesity No Intervention/Recommendation Recommendations by RD Protein supplementation Comments 1. Recommend Boost TID all meals due to decreased intake 2. Probiotics for diarrhea Expected Outcomes/Goals Expected Outcomes/Goals Goals: PO intake >50%, skin to remain intact, labs: WNL, wt to remain stable
--- NOTE | 2017-06-23 12:11 | Discharge Summary ---
DATE OF DISCHARGE: 06/23/2017 IDENTIFYING INFORMATION: The patient is an 82-year-old female. HISTORY OF PRESENT ILLNESS: The patient was transferred from the medical floor. The patient is with a history of dementia. I talked to her daughter who happens to be there. The patient has been confused with poor memory. Unable to explain herself. The only thing she knows is her name. Unable to tell me her age, where she is, why she be here. She believes she is 53 years of age. According to her daughter, no prior psychiatric treatment. No prior suicide attempt. The patient has a history of agitation and aggressive behavior. COURSE IN THE HOSPITAL: The patient was started on Aricept 5 mg at bedtime. She was continued with iron. She was on multivitamins, Seroquel was started on her and the dose was increased to 25 mg at bedtime. She continues with Altace, Restoril at bedtime. The patient progressively got better. She was no longer agitated or acting out, yelling and screaming. She improved. She was already accepted at [facility], so we felt at that point, the patient can go to a lesser level of care. FINAL DIAGNOSIS: AXIS I: Psychosis, not otherwise specified. AXIS II: Dementia. MEDICAL DIAGNOSES: Deferred to the medical doctor. The patient will be going to [facility] where I follow up with the patient there and primary care physician. EXPECTED OUTCOME: Stable if the patient complies to above. JOB# [id number]
--- NOTE | 2017-06-23 12:11 | Discharge Summary ---
DATE OF DISCHARGE: 06/23/2017 IDENTIFYING INFORMATION: The patient is an 82-year-old female. HISTORY OF PRESENT ILLNESS: The patient was transferred from the medical floor. The patient is with a history of dementia. I talked to her daughter who happens to be there. The patient has been confused with poor memory. Unable to explain herself. The only thing she knows is her name. Unable to tell me her age, where she is, why she be here. She believes she is 53 years of age. According to her daughter, no prior psychiatric treatment. No prior suicide attempt. The patient has a history of agitation and aggressive behavior. COURSE IN THE HOSPITAL: The patient was started on Aricept 5 mg at bedtime. She was continued with iron. She was on multivitamins, Seroquel was started on her and the dose was increased to 25 mg at bedtime. She continues with Altace, Restoril at bedtime. The patient progressively got better. She was no longer agitated or acting out, yelling and screaming. She improved. She was already accepted at [facility], so we felt at that point, the patient can go to a lesser level of care. FINAL DIAGNOSIS: AXIS I: Psychosis, not otherwise specified. AXIS II: Dementia. MEDICAL DIAGNOSES: Deferred to the medical doctor. The patient will be going to [facility] where I follow up with the patient there and primary care physician. EXPECTED OUTCOME: Stable if the patient complies to above. JOB# [id number]
--- NOTE | 2017-06-25 03:33 | Discharge Summary ---
DATE OF DISCHARGE: 06/23/2017 HOSPITAL COURSE: This is an elderly female patient, very confused, dementia, and history of psychosis, was admitted initially to medical floor for the electrolyte imbalance, treated, got better. Also had UTI, treated, got better. She was sent to the psych law and was put on psych medications, improved. The patient under ____. The patient was is in stable condition. On 06/23/2017, the patient was discharged. Discharged to [facility] where I will follow the patient. Diet as noted and medication reconciliation. Activity as tolerated. JOB# [id number]
== END 2017-06-23 15:50 | DRG 885 ==
LOC: GERO 15:36
PROVIDERS: ADMIT Psychiatry & Neurology Psychiatry; ATTEND Psychiatry & Neurology Psychiatry
DX: F29 Unspecified psychosis not due to a substance or known physiological condition (principal); F03.90 Unspecified dementia, unspecified severity, without behavioral disturbance, psychotic disturbance, mood disturbance, and anxiety; N39.0 Urinary tract infection, site not specified; I10 Essential (primary) hypertension; G47.00 Insomnia, unspecified; D50.9 Iron deficiency anemia, unspecified; Z91.81 History of falling; Z86.73 Personal history of transient ischemic attack (TIA), and cerebral infarction without residual deficits
CPT/HCPCS: 97530; J1630; J2060; X3904; Z7610